=== PATIENT | male | born 1940 | race Caucasian/White ===

== ENCOUNTER 2023-04-03 13:49 | Outpatient (AMB) | payer OTHER, SELFPAY ==
--- NOTE | 2023-04-03 13:55 | HO.NEPHOV_ITS ---
HPI HPI Comments History of Present Illness Details I had the privilege of seeing Remi in consultation for hyponatremia. He has history of atrial fibrillation but no history of heart failure. He has no history of liver failure or renal failure. He has no history of depression and is not on any antidepressant medications. He has no nausea, vomiting or diarrhea. He has no pedal edema. He has no history of hyperkalemia or hypotension. He denies compulsive water drinking. He has no history of seizures but had CVA. He has not on any diuretics. He tries to be good with fluid restriction. He drinks 2 beers a day. He has no weakness or mental status changes. His last serum sodium was 129. 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 A-fib Surgical History H/O colonoscopy Social History (Updated 04/03/23 @ 13:59 by Isidra Churchill MA) Alcohol intake: current Patient Tobacco Use Status: Former Tobacco user Vital Signs 04/03/23 13:56 Height 5 ft 9 in Weight 177 lb BMI 26.1 BP 110/70 Blood Pressure Location Lt brachial Position Sitting Pulse 93 Pulse Source Pulse Oximeter Pulse Oximetry (%) 99 Oxygen Delivery Method Room Air Physical Exam Vital Signs: Last Vital Signs Pulse 93 04/03/23 13:56 BP 110/70 04/03/23 13:56 Pulse Ox 99 04/03/23 13:56 Oxygen Delivery Method Room Air 04/03/23 13:56 BMI result Body Mass Index 26.1 Const General: comfortable and no acute distress Orientation/consciousness: patient oriented x3 HEENT Head: Yes normocephalic Mouth: Normal oral and palatal mucosa present Eyes EOM: EOMs intact bilaterally Neck Neck: Yes supple Resp Auscultation: clear to auscultation bilaterally Cardio Jugular venous distension: no JVD GI Palpation (GI): Soft to palpation Auscultation: normal bowel sounds General: Yes no CVA tenderness Back/Spine/Pelvis Back: no CVA tenderness Skin General skin exam: no rashes or lesions noted Neuro General: patient oriented x3 Extrem General: Yes no pedal edema Assessment & Plan Assessment & Plan (1) Essential (primary) hypertension: Code(s): I10 - Essential (primary) hypertension (2) Hyponatremia: Code(s): E87.1 - Hypo-osmolality and hyponatremia Plan Remi has hyponatremia for some time. His serum sodium has been fluctuant. He is hypertensive but not on any diuretics. He has no history of heart failure, liver failure or renal failure. He has no edema. He has no history of hyperkalemia or hypotension. He has no nausea, vomiting or diarrhea. He denies compulsive free water drinking but has 2 beers every day. He has history of CVA. 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 He has no weakness or mental status changes. I will be very reluctant to initiate him on oral urea or demeclocycline. I discussed with him the etiologies of low-sodium, investigations and management. We agreed on monitoring the blood work closely and initiating on medications when it is absolutely necessary. His blood pressure is at goal on current medication regimen and I have not made any changes. I ordered workup for his hyponatremia and has given a follow-up. All his questions were answered. Orders: Orders Uric Acid Today E87.1 - Hypo-osmolality and hyponatremia, I10 - Essential (primary) hypertension Cortisol Random Today E87.1 - Hypo-osmolality and hyponatremia, I10 - Essential (primary) hypertension Protein Electrophoresis, Serum Today E87.1 - Hypo-osmolality and hyponatremia, I10 - Essential (primary) hypertension Osmolality Urine Today E87.1 - Hypo-osmolality and hyponatremia, I10 - Essential (primary) hypertension Osmolality, Serum Today E87.1 - Hypo-osmolality and hyponatremia, I10 - Essential (primary) hypertension Thyroid Stimulating Hormone Today E87.1 - Hypo-osmolality and hyponatremia, I10 - Essential (primary) hypertension Sodium Urine Random Today E87.1 - Hypo-osmolality and hyponatremia, I10 - Essential (primary) hypertension Blood Urea Nitrogen Today E87.1 - Hypo-osmolality and hyponatremia, I10 - Essential (primary) hypertension Electrolytes Today E87.1 - Hypo-osmolality and hyponatremia, I10 - Essential (primary) hypertension Calcium Today E87.1 - Hypo-osmolality and hyponatremia, I10 - Essential (primary) hypertension Creatinine Today E87.1 - Hypo-osmolality and hyponatremia, I10 - Essential (primary) hypertension Coding Level of Care Code New Pt Level 4 (49310) Diagnoses Essential (primary) hypertension I10 Hyponatremia E87.1 Results Reviewed Nephrology Results: No Data to Display
[2023-04-03 13:56] VITALS: BP 110/70; PULSE 93; O2SAT 99; BMI 26.1
== END 2023-04-03 14:41 | disposition home or self-care (01) ==
PROVIDERS: PCP Family Medicine; Referring Provider Family Medicine; Visit Provider Internal Medicine Nephrology
DX: I10 Essential (primary) hypertension (principal); E87.1 Hypo-osmolality and hyponatremia
CPT/HCPCS: 99204

== ENCOUNTER → 2023-04-03 13:49 | Outpatient (BNVA) | payer OTHER, SELFPAY | PROVIDERS: PCP Family Medicine; Visit Provider Internal Medicine Nephrology ==

== ENCOUNTER 2023-07-17 09:27 | Outpatient (REF) | payer OTHER, SELFPAY ==
[2023-07-17 11:44] LABS: Osmolality, Serum 277 mosm/kg (281-305)
[2023-07-17 11:50] LABS: Anion Gap 9 (12-20); Blood Urea Nitrogen 16 mg/dL (9-16); Calcium 9.9 mg/dL (8.4-10.2); Carbon Dioxide 27 mmol/L (22-29); Chloride 103 mmol/L (96-108); Estimated Glomerular Filt Rate > 60; Potassium 4.3 mmol/L (3.3-5.1); Sodium 135 mmol/L (135-145); Uric Acid 6.1 mg/dL (3.4-7.0)
[2023-07-17 12:06] LABS: Thyroid Stimulating Hormone 0.77 uIU/mL (0.32-4.0)
[2023-07-17 12:07] LABS: Cortisol Random 15.7 ug/dL
[2023-07-17 12:13] LABS: Osmolality Urine 685 mosm/kg (373-1093)
[2023-07-21 22:54] LABS: Prot Elec - Alpha1 0.3 g/dL (0.2-0.3); Prot Elec - Alpha2 0.7 g/dL (0.5-0.9); Prot Elec - Beta 1 0.4 g/dL (0.4-0.6); Prot Elec - Beta 2 0.4 g/dL (0.2-0.5); Prot Elec - Gamma 0.9 g/dL (0.8-1.7); Prot Elec - Total Protein 6.7 g/dL (6.1-8.1)
== END 2023-07-17 09:28 | disposition home or self-care (01) ==
LOC: HO.WFDLDS 09:27
PROVIDERS: Visit Provider Internal Medicine Nephrology
DX: I10 Essential (primary) hypertension (principal); E87.1 Hypo-osmolality and hyponatremia
CPT/HCPCS: 36415; 80051; 82310; 82533; 82565; 83930; 83935; 84165; 84300; 84443; 84520; 84550

== ENCOUNTER 2023-07-30 11:20 | Outpatient (AMB) | payer OTHER, SELFPAY ==
[2023-07-30 11:24] VITALS: BP 122/68; BMI 24.7
--- NOTE | 2023-07-30 11:24 | HO.NEPHOV_ITS ---
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 He has history of atrial fibrillation but no history of heart failure. He has no history of liver failure or renal failure. He has no history of depression and is not on any antidepressant medications. He has no nausea, vomiting or diarrhea. He has no pedal edema. He has no history of hyperkalemia or hypotension. He denies compulsive water drinking. He has no history of s eizures but had CVA. He has not on any diuretics. He tries to be good with fluid restriction. He drinks 2 beers a day. He has no weakness or mental status changes. His last serum sodium was 135. 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 A-fib Surgical History H/O colonoscopy Social History Alcohol intake: current Patient Tobacco Use Status: Former Tobacco user Review of Systems Const All systems reviewed & are unremarkable except as noted in HPI and below Physical Exam Vital Signs: Last Vital Signs BP 122/68 07/30/23 11:24 BMI result Body Mass Index 24.7 Const General: comfortable and no acute distress Orientation/consciousness: patient oriented x3 HEENT Head: Yes normocephalic Mouth: Normal oral and palatal mucosa present Eyes EOM: EOMs intact bilaterally Neck Neck: Yes supple Resp Auscultation: clear to auscultation bilaterally Cardio Jugular venous distension: no JVD Rate: regular rate GI Palpation (GI): Soft to palpation Auscultation: normal bowel sounds General: Yes no CVA tenderness Back/Spine/Pelvis Back: no CVA tenderness Skin General skin exam: no rashes or lesions noted Neuro General: patient oriented x3 and moves all extremities Extrem General: Yes no pedal edema Results Reviewed Nephrology Results: Sodium 135 mmol/L (135-145) 07/17/23 Potassium 4.3 mmol/L (3.3-5.1) 07/17/23 Chloride 103 mmol/L (96-108) 07/17/23 Carbon Dioxide 27 mmol/L (22-29) 07/17/23 BUN 16 mg/dL (9-16) 07/17/23 Creatinine 0.72 mg/dL (0.5-1.4) 07/17/23 Calcium 9.9 mg/dL (8.4-10.2) 07/17/23 Assessment & Plan Assessment & Plan (1) Hyponatremia: Code(s): E87.1 - Hypo-osmolality and hyponatremia Category: Medical (2) Essential (primary) hypertension: Code(s): I10 - Essential (primary) hypertension Category: Medical Plan Remi has hyponatremia for some time. His serum sodium had been fluctuant. He is hypertensive but not on any diuretics. He has no history of heart failure, liver failure or renal failure. He has no edema. He has no history of hyperkalemia or hypotension. He has no nausea, vomiting or diarrhea. He denies compulsive free water drinking but has 2 beers every day. He has history of CVA. 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 He has no weakness or mental status changes. I discussed with him the etiologies of low-sodium, investigations and management. We agreed on monitoring the blood work closely and initiating on medications when it is absolutely necessary. His blood pressure is at goal on current medication regimen and I have not made any changes. All his questions were answered. Orders: Orders Creatinine Today E87.1 - Hypo-osmolality and hyponatremia, I10 - Essential (primary) hypertension Blood Urea Nitrogen Today E87.1 - Hypo-osmolality and hyponatremia, I10 - Essential (primary) hypertension Electrolytes Today E87.1 - Hypo-osmolality and hyponatremia, I10 - Essential (primary) hypertension Coding Level of Care Code Est Pt Level 4 (82656) Diagnoses Hyponatremia E87.1 Essential (primary) hypertension I10
== END 2023-07-30 11:50 | disposition home or self-care (01) ==
PROVIDERS: PCP Family Medicine; Visit Provider Internal Medicine Nephrology
DX: E87.1 Hypo-osmolality and hyponatremia (principal); I10 Essential (primary) hypertension
CPT/HCPCS: 99214

== ENCOUNTER → 2023-07-30 11:20 | Outpatient (BNVA) | payer OTHER, SELFPAY | PROVIDERS: PCP Family Medicine; Visit Provider Internal Medicine Nephrology ==

== ENCOUNTER 2024-01-22 08:52 | Outpatient (REF) | payer OTHER, SELFPAY ==
--- OUTSIDE RECORDS SUMMARY | 2024-01-22 09:06 | XMS_ITS | Data Portability ---
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 Montiel. His symptoms are about the same. Pain. Pain with motion. He reports increased weakness in the left leg. He is still ambulating. Physical Exam: Patient is well nourished, well-developed, in no acute distress, with appropriate mood and affect. The patient is oriented to time, place, and person. Respirations are even and unlabored. There is no inguinal adenopathy. Examination of the contralateral hip shows normal range of motion, strength, no tenderness, and intact skin. The affected limb is well-perfused, shows a grossly normal motor and sensory examination. Examination of the left hip shows well-healed lateral skin incision. hip motion is reduced. FADIR is positive and MARCELLO is positive. Stinchfield test is positive. Leg lengths are approximately left leg less than right by 2 cm. Both hips are stable and muscle strength is normal. Pedal pulses are palpable. Radiographs of the left hip from July 2022 demonstrate a left hip hemiarthroplasty. There is significant acetabular wear and surrounding bone loss. No signs of left femoral prosthesis related hardware complications. 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 Montiel in 2016. I recommend surgery for him. This would be conversion to total hip replacement. Obviously surgery comes with risk, but I feel that this will only worsen and he may be unable to ambulate in the future and surgical intervention will become much more complex. Patient Refuses surgery at this time. That is his decision, which obviously we will respect. he under stands the significant risks of delaying surgery. He will return for follow-up in 1 year unless he changes his mind about surgery before then. Not available 04/18/2023 11:03:52 08/08/2023 08/08/2023 HPI : ? Patient Is coming in for follow-up for his severe left acetabular wear following hemiarthro[place] [address] Montiel. His symptoms have severely worsened since I last saw him in April. He has difficulty ambulating. He has severe pain. This is affecting his quality of life. There are some days where he is unable to walk. Physical Exam : Patient is well nourished, well-developed, in no acute distress, with appropriate mood and affect. The patient is oriented to time, place, and person. Respirations are even and unlabored. There is no inguinal adenopathy. Examination of the contralateral hip shows normal range of motion, strength, no tenderness, and intact skin. The affected limb is well-perfused, shows a grossly normal motor and sensory examination. Examination of the left hip shows well-healed lateral skin incision. hip motion is reduced. FADIR is positive and MARCELLO is positive. Stinchfield test is positive. Leg lengths are approximately left leg less than right by 2 cm. Both hips are stable and muscle strength is normal. Pedal pulses are palpable. Assessment/Plan : Patient has severe acetabular wear following left hip hemiarthroplasty which also at that time had reaming of his acetabulum. Surgery would be left revision total hip replacement,, conversion hemiarthroplasty to total hip arthroplasty. He would like to move forward with surgical intervention. An extensive discussion was conducted of the natural history of the disease and the variety of surgical and non-surgical treatment options available to the patient. A risk/benefit analysis was discussed with the patient reviewing the advantages and disadvantages of surgical intervention at this time. A full explanation was given of the nature and the purpose of the procedure and anesthesia, its benefits, possible alternative methods of diagnosis or treatment, the risks involved, the possibility of complications, the foreseeable consequences of the procedure and the possible results of the non-treatment. No guarantee or assurance was made as to the results that may be obtained. Specifically, the risks were identified to include, but are not limited to the following: Infection, phlebitis, pulmonary embolism, , paralysis, dislocation, pain, stiffness, instability, limp, weakness, breakage, leg-length inequality, uncontrolled bleeding, nerve injury, blood vessel injury, pressure sores, anesthetic risks, delayed healing of wound and bone, and wear and loosening. Additional risks of robotic hip replacement were discussed (if used) including but not limited to pin site infection, draining, longer incision, longer OR time, and fracture near the pin sites. Further discussion was undertaken with the patient about the details of surgical preparation, treatment, and postoperative rehabilitation including medical clearance, autotransfusion, the hospital course, and the postoperative rehabilitation involved. As a part of routine preoperative counseling, if the patient is a smoker, the patient recognizes the increased risk of complications in patients who utilize tobacco products. The patient has also been counseled regarding the elevated risk of surgical complications in patients with an elevated BMI. The patient demonstrates understanding of the increased risk in such patients. The patient was encouraged to participate in physical activity and diet modification under the direction of their primary care physician. We will plan on proceeding with left revision total hip arthroplasty using the [place] hip replacement system. However, it is possible during the preoperative planning process or due to intraoperative findings that a different implant system may be utilized in order to optimize the patient's outcome. We had a discussion regarding implant and bearing options. We had a detailed discussion of the advantages and limitations of the specific implant designs, materials and bearing surfaces. All questions were answered to the patient's satisfaction, and the patient was asked to call the office with any further concerns. All in all, I feel that this patient is a good candidate for surgical reconstruction. We discussed the increased risks regarding revision total hip replacement,, conversion hemiarthroplasty to total hip arthroplasty. We discussed the increased concerns given his severe acetabular wear given his prior surgery. An in-depth discussion of the risks and benefits of surgery as noted above were had with patient, including any reasonable alternatives and the risks and benefits of the alternatives. The patient was given time to understand and ask questions, and the surgical consent was signed and dated today. If surgery is >1 month from today, this discussion will be repeated on the day of surgery, prior to anesthesia administration. The patient is also aware that questions can be asked at any time before the surgical date to me or my team. Plan for left revision total hip replacement at [facility]. Not available 08/08/2023 14:24:12 09/18/2023 09/18/2023 HPI : Patient is here for a 2 week follow-up from a left revision JOSE. Patient denies fevers, chest pain and shortness of breath. Patient has been compliant with anticoagulant protocol. He used pain pills for the first 2 days but has since switched over to just Tylenol and gets adequate relief of pain. He is compliant with Eliquis for DVT prophylaxis. He does have plans to get started on physical therapy soon. Already, he is pleased with the results of his hip arthroplasty. He states that it is already moving much better than it did before surgery. Physical Exam : Patient is well nourished, well- developed, in no acute distress, with appropriate mood and affect. The patient demonstrates good hip motion and strength. The incision is clean and dry with no signs of infection. Negative calf tenderness, negative Arcelia's sign. Assessment/Plan : The patient is doing well status post total hip arthroplasty. Patient will continue and complete 28 day anticoagulation therapy and continue physical therapy. Return for follow-up in 1 month; sooner with any problems. This patient was seen and evaluated by Kristine Sheridan MS, PA-C in indirect conjunction with documenting/[facility] provider Juan Carlos Beltran MD. He agrees with history, physical examination, tests/diagnostic imaging, and treatment plan. [email or web address] Not available 09/18/2023 14:50:09 10/17/2023 10/17/2023 HPI : Patient is here for a 6 week follow-up from a left revision total hip replacement. Overall he states he is recovering well. He is better than he was before surgery. The thigh has some tenderness and swelling. He has not done physical therapy yet, but he is getting get started next week. He is walking with a cane. He states that his back feels much better than before surgery. Physical Exam : Patient is well nourished, well- developed, in no acute distress, with appropriate mood and affect. The patient is AAOx3. The patient demonstrates good hip motion and strength. The incision is well healing. Assessment/Plan : The patient is functioning well 6 weeks from left revision total hip replacement. We discussed that he should not do high impact activities given the revision surgery components. Continue physical therapy as needed. Return for follow-up in 2 months with x-rays at that time. Not available 10/17/2023 11:23:32 12/16/2023 12/16/2023 HPI : ? Patient is here for 4-month follow-up from left revision hemiarthroplasty to total hip arthroplasty. He is recovering well. Reports really minimal to no pain. He reports good function. His main complaint is some stiffness that is slowly improving. He is transition to exercises on his own. He is walking with a cane. Overall,??patient reports good pain relief in the hip and satisfactory yazidi of function in terms of activities of daily living. Physical Exam : Patient is well nourished, well-developed, in no acute distress, with appropriate mood and affect. The patient is oriented to time, place, and person. Respirations are even and unlabored. There is no inguinal adenopathy. Examination of the contralateral hip shows normal range of motion, strength, no tenderness, and intact skin. The operative limb is well-perfused, with well healed skin incision. The patient demonstrates good hip motion, stability, and strength. There is no pain with ROM Muscle strength is normal. Pedal pulses are palpable. Assessment/Plan : This patient is functioning well after LEFT revision total hip arthroplasty. Continue to work on hip conditioning exercises. [id number] medications as needed. Ultimate failure may occur due to mechanical wear, loosening or breakage. Follow-up is recommended to assess for the possibility of failure. He will follow-up with me in 6 months from now with repeat x-rays of the left hip at that time. Not available 12/16/2023 13:43:26 Plan of Treatment Reminders Order Date Submit Date Provider Last Modified By Organization Details Last Modified Time Details Appointments FOLLOW UP 2024 11:30A Anna Beltran MD Not available Not available Not available FOLLOW UP 2024 01:15P Anna Beltran MD Not available Not available Not available Lab None recorded. Referral None recorded. Procedures None recorded. Surgeries total hip arthropla sty (SURG) 2023 024 [facility] [place], [address], [place], [address], 09/05/2023 10:13:54 Imaging XR, hip, unilatera l, 2 or 3 view 2023 024 [facility], [address], [address], [place], [address], 04/18/2023 12:01:42 XR, hip, unilatera l, 2 or 3 view 2023 024 [email or web address] [facility], [address], [address], [place], [address], 08/08/2023 13:49:10 XR, hip, unilatera l, 2 or 3 view 2023 024 [facility], [address], [place], [address], 10/17/2023 11:49:07 XR, hip, unilatera l, 2 or 3 view 2023 024 [facility], [address], [place], [address], 12/16/2023 16:06:19 Medication Orders None recorded. Patient TargetsNo targets recorded. Patient Instructions Encounter Date Encounter Id Patient Instructions Last Modified By Organization Details Last Modified Time 04/18/2023 [id number] AP pelvis, AP an d lateral of the left hip demonstrates a left hip hemiarthroplasty. There is significant acetabular wear and cyst formation. I do not see significant progression compared to x-rays from 6 months ago. Not available 04/18/2023 11:01:41 08/08/2023 [id number] AP pelvis, AP an d lateral of the left hip demonstrates a left hip hemiarthroplasty. There is significant acetabular wear and cyst formation. I do not see significant progression compared to x-rays from 3 months. Not available 08/08/2023 13:47:12 09/18/2023 [id number] physical therapy * - Diagnosis: Status post revision left sided total hip arthroplasty Evaluate and treat as indicated to reduce pain and to improve strength, mobility, stability, range of motion, and function. Please teach a home exercise plan and incorporate PT into patient's exercise routine. 2-3 sessions weekly for 6-8 weeks. [email or web address] Not available 09/25/2023 09:39:28 10/17/2023 [id number] AP pelvis, AP an d lateral of the left hip demonstrate a left revision total hip replacement. Multihole acetabular component appears in appropriate position without signs of migration. Cemented [place] femoral component with evidence of cement and cement technique. No signs of migration or change in component position or other hardware related complication. Not available 10/17/2023 11:24:19 12/16/2023 [id number] AP pelvis, AP an d lateral of the left hip demonstrates a left revision total hip replacement with multihole acetabular component which appears well-fixed. There is a cemented femoral component. There is no change in lucent lines or position of component compared to prior x-rays from October. Not available 12/16/2023 13:43:50 Reason for Referral None Reported. Results Created Date Observation Date Name Description Value Unit Range Abnormal Flag Note LastModifiedBy Organization Detail LastModifiedTime 09/06/19 24 08/29/2023 CT, hip + pelvi s, w/o contr ast EXAMIN ATION: CT OF THE LEFT HIP WITHOU T CONTRA ST, [facility] AL INFORM ATION: Pre-op erativ e planni ng for hip MAKOpl asty. Arthri tis of the left hip. Revisi on total hip arthro plasty 2023. COMPAR JANE: Radiog raphs from the same date. TECHNI QUE: Multid etecto r volume tric imagin g was obtain ed throug h the hips and knees (biase d toward the left) withou t contra st accord ing to the [facility]. Multip lanar reform atted images were submit [email or web address]. This CT examin ation was perfor med using dose optimi zation techni ques as approp riate, variou sly includ ing the follow ing: *Autom ated exposu re contro l *Adjus tment of mA and/or kV accord ing to patien t size (this includ es techni ques or standa rdized protoc ols for target ed exams where dose is matche d to indica tion/r cheryle for exam; i.e. extrem ities or head) *Use of iterat pradeep recons tructi on techni que DLP: 807 mGy-cm FINDIN GS: Hip: The left total hip prosth esis appear s approp riatel y positi oned with concen tric positi oning of the femora l head compon ent within the acetab ular cup. There is extens pradeep peripr osthet ic osteol ysis surrou nding the femora l compon ent diffus sage at the bone cement interf sapna as well as at the acetab ular cup diffus sage. This could be due to partic le diseas e, though infect ion and asepti c loosen ing are also possib le. No peripr osthet ic fractu res are identi fied. Foci of hetero topic bone are presen t at the infero medial aspect of the joint, potent ially corredarshan salguero g to loose bodies within an excres cence recess from the joint or within the adjace nt soft tissue s. No large surrou nding fluid collec tions or pseudo tumors are identi fied. There is severe fatty atroph y of the gluteu s minimu s and more modera te-to- severe atroph y of the gluteu s medius muscle . Small focus of fatty atroph y is noted in the left rectus femori s muscle . Bladde r wall thicke suzanne is noted. No acute intrap elvic findin gs. No adenop athy. Athero sclero tic calcif icatio ns are noted. Osseou s fusion is presen t at the lower thorac ic spine and thorac olumba r juncti on. Modera te-to- severe osteoa rthrit is in the right hip. Knee: Bones are osteop enic. Chondr ocalci nosis. Mild tricom partme ntal osteoa rthrit is at the knee. No joint effusi on. Fatty atroph y is noted within the semime mbrano lorna muscle . IMPRES PHOEBE: 1. Extens pradeep peripr osthet ic osteol ysis surrou nding the femora l and acetab ular compon ents of the left total hip prosth esis. This could be due to partic le diseas e or asepti c loosen ing, though infect ion is also on the differ ential . 2. Modera te-to- severe osteoa rthrit is in the right hip. Thank you for referr ing your patien t to us, Ervin lozano MD [phone] (Elect nery miranda Signed - 2023 09:14) Copy: [facility] T , [email or web address] [address] [facility] [address], [place], [address], 09/08/2023 06:28:14 09/10/1908/29/2023 XR, pelvi s, 1 or 2 view EXAMIN ATION: XR PELVIS CLINIC AL INFORM ATION: Hip arthri tis COMPAR JANE: None availa ble. TECHNI QUE: Uprigh t and seated latera l views of the sacrum and coccyx FINDIN GS: No obviou s fractu re. Normal alignm ent of the sacrum and coccyx , stable appear ance betwee n the 2 positi ons. IMPRES PHOEBE: No obviou s fractu re. Normal alignm ent of the sacrum and coccyx . Thank you for referr ing your patien t to us, Louise taylor MD [phone] (Roberto miranda Signed - 2023 08:52) [email or web address] [address] [place] [address], [place], [address], 09/10/2023 10:29:47 Result Notes None recorded. Problems Name Problem SNOMED Code Status Onset Date Resolution Date Notes Provider Name and Address Organization Details Recorded Time Mechanical complication of internal joint prosthesis 812327375 Active 2022 Juan Carlos Beltran MD [address], [facility] [place], [address], [place] [facility], P 3 11:50:26 History of repair of hip joint 867241105 Active 2023 KRISTINE SHERIDAN PA-C [address] [facility],[address], [place], [address] , [place] [facility], P 14:50:17 Problem Notes None recorded. Procedures Surgical History Date Name Laterality Status Provider Name and Address Organization Details Recorded Time 09/04/19 24 TOTAL HIP ARTHROPLASTY (SURG) completed Heydi Bass [place] - [facility], [facility] 09/05/2023 10:14:10 01/21/20 17 Hip Surgery completed Yessenia Fraga [facility] - [facility] 10/04/2022 11:01:48 Imaging Results Imaging Date Name Status LastModified by Organiz ation Details LastModified Time 08/29/2023 CT, hip + pelvis, w/o contrast completed [facility] [address] [facility] [address], [place], [address], 09/08/2023 06:28:14 08/29/2023 XR, pelvis, 1 or 2 view completed [facility] [address] [facility] [address], [place], [address], 09/10/2023 10:29:47 Procedure Notes None recorded. Medical Equipment None Reported. Allergies No known drug allergies Medications Name Sig Start Date Stop Date Status Note LastModified by Organization Details LastModified Time atorvastati n 40 mg tablet TAKE 1 TABLET BY MOUTH DAILY active Not Available Not Available No t Available metoprolol succinate ER 50 mg tablet,exte nded release 24 hr TAKE 1 TABLET BY MOUTH DAILY active Not Available Not Available No t Available lisinopril 20 mg tablet TAKE 1 TABLET BY MOUTH DAILY. LISINOPRI L 5 MG BY MOUTH ADDED TO 20 MG DAILY. active Not Available Not Available No t Available nitroglycer in 0.4 mg sublingual tablet 12/15 completed Not Available Not Available Not Available pravastatin 20 mg tablet TAKE 1 TABLET BY MOUTH DAILY 12/15 completed Not Available Not Available Not Available lisinopril 5 mg tablet TAKE 1 TABLET BY MOUTH DAILY active Not Available Not Available No t Available Eliquis 5 mg tablet TAKE 1 TABLET BY MOUTH TWICE DAILY active Not Available Not Available No t Available Vitals Date Recorded Body height Body mass index (BMI) Body weight Provider Name and Address Organization Details Last Updated DateTime 04/18/2023 175.26 cm 26 kg/m2 82165.26 g Ciara Reinoso [facility] 04/18/2023 10:51:40 Date Recorded Body height Body mass index (BMI) Body weight Provider Name and Address Organization Details Last Updated DateTime 08/08/2023 175.26 cm 26 kg/m2 02443.26 brian Madden [facility] 08/08/2023 13:04:46 Date Recorded Body height Body mass index (BMI) Body weight Provider Name and Address Organization Details Last Updated DateTime 09/18/2023 175.26 cm 26 kg/m2 67501.26 g Felipa Cowan [facility] 09/18/2023 14:30:37 Date Recorded Body height Body mass index (BMI) Body weight Provider Name and Address Organization Details Last Updated DateTime 10/17/2023 175.26 cm 26 kg/m2 00473.26 g Ciara Reinoso [facility], [facility] 10/17/2023 10:45:45 Date Recorded Body height Body mass index (BMI) Body weight Provider Name and Address Organization Details Last Updated DateTime 12/16/2023 175.26 cm 26 kg/m2 37231.26 g Ciara Reinoso [facility], [facility] 12/16/2023 13:18:59 Social History Question Answer Notes LastModified by Organizat ion Details LastModified Time Tobacco Smoking Status Former Smoker Yessenia huerta, [place] - [facility] 08/05/2022 11:35:20 When Did You Quit Smoking? 17+yearssinc elastcigaret te Information not available 08/05/2022 Sex: Unknown Functional Status None recorded. Mental Status None recorded. Family History Relationship Description Onset Age of this Age Resolved Age Notes LastModified by Organization Details LastModified Time Father Arthritis Not available 08/05/2022 11:35:39 Mother Arthritis Not available 08/05/2022 11:35:39 Mother Hypertensive disorder Not available 2022 11:36:06 Sister Family history of malignant neoplasm Not available 2022 11:35:49 Brother Hypertensive disorder Not available 2022 11:36:06 Notes:rheumatologic disease- mother Medical History Condition Response Hypertension Y Past Encounters Encounter ID Performer Location Encounter Start Date Encounter Closed Date Diagnosis/Indication Diagnosis SNOMED-CT Code Diagnosis ICD10 Code [id number] [facility] [address] [place] [address] 08/05/2022 11:11:05 08/05/2022 11:41:55 History of total replacement of left hip joint 5193170222 505781 Z96.642 [id number] MD RAFIA Card[place] [address] [address] 10/04/2022 10:40:59 10/04/2022 11:15:29 History of left hip replacement 6026947981 987074 Z96.642 Mechanical complication of internal joint prosthesis 607035038 T84.091A [id number] [facility] [address] [address] 04/18/2023 10:16:02 04/18/2023 11:07:34 History of total replacement of left hip joint 8028733803 846751 Z96.642 Mechanical complication of internal joint prosthesis 516535029 T84.091A [id number] MD RAFIA Card[place] [address] [address] 08/08/2023 12:55:25 08/08/2023 13:49:10 History of repair of hip joint 785458962 Z96.642 Mechanical complication of internal joint prosthesis 619945252 T84.091A History of total hip arthroplasty [id number] 06 Z96.649 [id number] MD RAFIA Cardozolatonya [address] [address] 09/18/2023 14:25:01 09/18/2023 14:50:37 History of repair of hip joint [id number] Z96.642 [id number] [facility] [address] [place] [address] 10/17/2023 10:41:41 10/17/2023 11:28:57 History of total replacement of left hip joint [id number] 535297 Z96.642 Surgical follow-up 82512 4000 Z47.1 Z96.642 [id number] MD RAFIA Cardozo [place] [facility] [address] [place] [address] 12/16/2023 13:10:09 12/16/2023 13:42:28 History of repair of hip joint [id number] Z96.642 Health Concerns Section Related Observation LastModified by Organization Detai ls LastModified Time None Recorded Concern Status LastModified by Organization Details LastModified Time None Recorded Advance Directives Directive None Recorded Payers Encounter Date Sequence Insurance Name Policy Number Policy Anderson Covered Member ID Anderson Member ID Guarantor Name 08/08/2023 1 [facility] - MEDICARE PREFERRED (MEDICARE REPLACEMENT HMO) [facility] Addi Ordonez [id number] 1 Addi Mery 09/18/2023 1 [facility] - MEDICARE PREFERRED (MEDICARE REPLACEMENT HMO) [facility] Addi Ordonez [id number] 1 Addi Ordonez 10/17/2023 1 [facility] - MEDICARE PREFERRED (MEDICARE REPLACEMENT HMO) [facility] Addi Ordonez [id number] 1 Addi Ordonez 12/16/2023 1 [facility] - MEDICARE PREFERRED (MEDICARE REPLACEMENT HMO) [facility] Addi Ordonez [id number] 1 Addi Mery
[2024-01-22 11:46] LABS: Anion Gap 14 (12-20); Blood Urea Nitrogen 12 mg/dL (9-16); Carbon Dioxide 24 mmol/L (22-29); Chloride 101 mmol/L (96-108); Estimated Glomerular Filt Rate > 60; Potassium 4.4 mmol/L (3.3-5.1); Sodium 135 mmol/L (135-145)
== END 2024-01-22 08:53 | disposition home or self-care (01) ==
LOC: HO.WFDLDS 08:52
PROVIDERS: Visit Provider Internal Medicine Nephrology
DX: E87.1 Hypo-osmolality and hyponatremia (principal); I10 Essential (primary) hypertension
CPT/HCPCS: 36415; 80051; 82565; 84520

== ENCOUNTER 2024-01-28 11:16 | Outpatient (AMB) | payer OTHER, SELFPAY ==
--- OUTSIDE RECORDS SUMMARY | 2024-01-28 11:18 | XMS_ITS ---
Author Name CRISP Organization Unknown Results Test Name/Text Value Interpretation Date Range Source BLOOD BANK CMNT PATIENT-IMP Normal CTTHSFRAN ABO+RH GP BLD Normal CTT HSFRAN BLD GP AB SCN SERPL QL Normal CTTHSFRAN BLOOD BANK CMNT PATIENT-IMP Normal CTTHSFRAN ABO+RH GP BLD Normal CTT HSFRAN History of Medication Use Medication Directions Dispensed Refills Start Date End Date [facility] calcium carbonate (TUMS) chewable tablet 500 mg 500 mg, Chew, Every 4 hours PRN, indigestion, heartburn, Starting on Maribel 09/04/23 at 1726 09/07/2023 active bisacodyl (DULCOLAX) suppository 10 mg 10 mg, Rectal, Daily as needed, constipation, Starting on Maribel 09/04/23 at 1726Hold for patients with history of IBS, IBO, Ileostomy. 09/07/2023 active metoclopramide (REGLAN) injection 10 mg 10 mg, Intravenous, Every 6 hours PRN, nausea, vomiting, Starting on Maribel 09/04/23 at 1528, PACU/FloorTo be given if zofran is ineffective. 09/07/2023 active tranexamic acid (LYSTEDA) 650 MG tablet Take 3 tablets (1,950 mg total) by mouth daily for 2 days. Tranexamic Acid (TXA): continue oral TXA on post-operative days #1, 2, 3. You received your first dose in the hospital. Continue remaining doses as prescribed. Each dose is 1950mg (3 pills). Swallow one pill at a time with water. 09/07/2023 active HYDROmorphone (DILAUDID) injection 0.5 mg 0.5 mg, Intravenous, Every 4 hours PRN, severe pain (7-10), Starting on Maribel 09/04/23 at 1528, PACU/FloorAdminister IV push over 2-3 minutes. 09/07/2023 active ondansetron (ZOFRAN-ODT) 8 MG disintegrating tablet Take 1 tablet (8 mg total) by mouth every 8 (eight) hours as needed for nausea for up to 7 days. 09/07/2023 active apixaban (ELIQUIS) tablet 2.5 mg 2.5 mg, Oral, 2 times daily, First dose on Maribel 09/04/23 at 1800, For 14 dosesEliquis 2.5mg by mouth twice daily for 2 weeks, THEN resume home dose eliquis 5mg bid on 09/18/23 09/07/2023 active sulfamethoxazole-tr imethoprim (BACTRIM DS) 800-160 MG per tablet Take 1 tablet (160 mg of trimethoprim total) by mouth every 12 (twelve) hours for 7 days. 09/07/2023 active methocarbamol (ROBAXIN) 750 MG tablet Take 1 tablet (750 mg total) by mouth every 6 (six) hours as needed. 09/07/2023 active oxyCODONE (ROXICODONE) 5 MG immediate release tablet Take 1 tablet (5 mg total) by mouth every 4 (four) hours as needed for pain. 09/07/2023 active oxyCODONE (ROXICODONE) 5 MG immediate release tablet 10 mg 10 mg, Oral, Every 4 hours PRN, moderate pain (4-6), Starting on Maribel 09/04/23 at 1528, PACU/Floor 09/07/2023 active sulfamethoxazole-tr imethoprim (BACTRIM DS) 800-160 MG per tablet 160 mg of trimethoprim 160 mg of trimethoprim (1 tablet), Oral, Every 12 hours scheduled (2 times per day), First dose on Maribel 09/04/23 at 2100, For 7 days 09/07/2023 active orphenadrine (NORFLEX) injection 30 mg 30 mg, Intravenous, Once as needed, muscle spasms, for musculoskeletal pain, to achieve pain scale less than or equal to 4, Starting on Maribel 09/04/23 at 1527, For 1 dose, PACU/Phase 1 09/07/2023 complet ed tranexamic Acid 1,000 mg in sodium chloride 0.9% (NS) 100 mL IVPB-MBP 1,000 mg, Intravenous, Administer over 20 Minutes, Once, On Maribel 09/04/23 at 1530, For 1 dose, PACU/Phase 1Administer within 30 minutes arrival to PACU??for OR 09/07/2023 complete d magnesium hydroxide (MILK OF MAGNESIA) 400 MG/5ML suspension 30 mL 30 mL, Oral, Daily as needed, constipation, Starting on Maribel 09/04/23 at 1726Hold for patients with history of IBS, IBO, Ileostomy. 09/07/2023 active dexamethasone (DECADRON) tablet 8 mg 8 mg, Oral, Once, On Fri09/05/23 at 0800, For 1 dosePOD #1 in the morning.??Hold for patients with the following procedures: I&D w/ or w/o poly exchange, resection arthroplasty, removal of prosthesis 09/07/2023 completed alum & mag hydroxide-simethico ne suspension 30 mL 30 mL, Oral, Every 6 hours PRN, indigestion, Starting on Maribel 09/04/23 at 1726 09/07/2023 active benzocaine-menthol (CEPACOL) lozenge 1 lozenge 1 lozenge, Oral, Every 2 hours PRN, sore throat, Starting on Maribel 09/04/23 at 1726 09/07/2023 active ceFAZolin (ANCEF) injection 2 g 2 g, Intravenous, Every 8 hours, First dose on Maribel 09/04/23 at 2000, For 1 dose, PACU/FloorGive 8 hours after the intra-op cefazolin dose.??For Adults, if ordered IV then reconstitute each 1GM vial with 10mL sterile water or normal saline and administer IV Push over 3-5 minutes. 09/07/2023 completed lactated ringers infusion 100 mL/hr, Intravenous, Continuous, Starting on Maribel 09/04/23 at 1545, PACU/Floor 09/07/2023 active senna-docusate (PERICOLACE) 8.6-50 MG Take 1 tablet by mouth 2 (two) times a day. 09/07/2023 active ondansetron (ZOFRAN) injection 4 mg 4 mg, Intravenous, Every 6 hours PRN, nausea, vomiting, Starting on Maribel 09/04/23 at 1528, PACU/FloorTo be given first. 09/07/2023 active amoxicillin (AMOXIL) 500 MG tablet Take 4 tabs 1 hour prior to dental appointment 08/23/2023 active atorvastatin (LIPITOR) tablet 40 mg Take 1 tablet (40 mg total) by mouth daily. 08/23/2023 active nitroglycerin (NITROSTAT) 0.4 MG SL tablet 08/23/2023 active apixaban (Eliquis) 5 MG TABS tablet Take 1 tablet (5 mg total) by mouth 2 (two) times a day. 08/23/2023 active metoprolol succinate (TOPROL-XL) 24 hr tablet 50 mg Take 1 tablet (50 mg total) by mouth daily. 08/23/2023 active lisinopril (PRINIVIL,ZESTRIL) tablet 20 mg Take 1 tablet (20 mg total) by mouth daily. 08/23/2023 active pravastatin (PRAVACHOL) tablet 20 mg Take 1 tablet (20 mg total) by mouth daily. 08/23/2023 aborted aspirin EC 81 MG tablet Take 1 tablet (81 mg total) by mouth daily. 08/23/2023 active fluticasone (Flonase Allergy Relief) 50 MCG/ACT nasal spray Daily, 0 Refills, Maintenance, 11/19/19 13:27:00 EDT 08/23/2023 active acetaminophen (TYLENOL EXTRA STRENGTH) 500 MG tablet Take 2 tablets (1,000 mg total) by mouth every 6 (six) hours as needed for pain. 08/23/2023 active metoprolol succinate (TOPROL-XL) 24 hr tablet 50 mg Take 1 tablet (50 mg total) by mouth daily. 08/20/2023 active amoxicillin (AMOXIL) 500 MG tablet Take 4 tabs 1 hour prior to dental appointment 08/20/2023 active atorvastatin (LIPITOR) tablet 40 mg Take 1 tablet (40 mg total) by mouth daily. 08/20/2023 active acetaminophen (TYLENOL EXTRA STRENGTH) 500 MG tablet Take 2 tablets (1,000 mg total) by mouth every 6 (six) hours as needed for pain. 08/20/2023 active pravastatin (PRAVACHOL) tablet 20 mg Take 1 tablet (20 mg total) by mouth daily. 08/20/2023 active lisinopril (PRINIVIL,ZESTRIL) tablet 20 mg Take 1 tablet (20 mg total) by mouth daily. 08/20/2023 active nitroglycerin (NITROSTAT) 0.4 MG SL tablet 08/20/2023 active fluticasone (Flonase Allergy Relief) 50 MCG/ACT nasal spray Daily, 0 Refills, Maintenance, 11/19/19 13:27:00 EDT 08/20/2023 active apixaban (Eliquis) 5 MG TABS tablet Take 1 tablet (5 mg total) by mouth 2 (two) times a day. 08/20/2023 active aspirin EC 81 MG tablet Take 1 tablet (81 mg total) by mouth daily. 08/20/2023 active acetaminophen (TYLENOL EXTRA STRENGTH) 500 MG tablet Take 2 tablets (1,000 mg total) by mouth every 6 (six) hours as needed for pain. 2023 active lisinopril (PRINIVIL,ZESTRIL) tablet 20 mg Take 1 tablet (20 mg total) by mouth daily. 2023 active metoprolol succinate (TOPROL-XL) 24 hr tablet 50 mg Take 1 tablet (50 mg total) by mouth daily. 2023 active pravastatin (PRAVACHOL) tablet 20 mg Take 1 tablet (20 mg total) by mouth daily. 2023 active nitroglycerin (NITROSTAT) 0.4 MG SL tablet 2023 active apixaban (Eliquis) 5 MG TABS tablet Take 1 tablet (5 mg total) by mouth 2 (two) times a day. 2023 active fluticasone (Flonase Allergy Relief) 50 MCG/ACT nasal spray Daily, 0 Refills, Maintenance, 11/19/19 13:27:00 EDT 2023 active aspirin EC 81 MG tablet Take 1 tablet (81 mg total) by mouth daily. 2023 active amoxicillin (AMOXIL) 500 MG tablet Take 4 tabs 1 hour prior to dental appointment 2023 active levoFLOXacin (LEVAQUIN) 250 MG tablet Take 1 tab daily for 10 days 2023 aborted atorvastatin (LIPITOR) tablet 40 mg Take 1 tablet (40 mg total) by mouth daily. 2023 active Eliquis 5 mg tablet TAKE 1 TABLET BY MOUTH TWICE DAILY 08/10/2023 active nitroglycerin 0.4 mg sublingual tablet 08/10/2023 active atorvastatin 40 mg tablet TAKE 1 TABLET BY MOUTH DAILY 08/10/2023 active lisinopril 20 mg tablet TAKE 1 TABLET BY MOUTH DAILY LISINOPRIL 5 MG BY MOUTH ADDED TO 20 MG DAILY 08/07/2022 active atorvastatin 40 mg tablet TAKE 1 TABLET BY MOUTH DAILY 04/20/2023 active nitroglycerin 0.4 mg sublingual tablet 04/20/2023 active lisinopril 5 mg tablet TAKE 1 TABLET BY MOUTH DAILY 08/07/2022 active metoprolol succinate ER 50 mg tablet,extended release 24 hr TAKE 1 TABLET BY MOUTH DAILY 10/07/2022 active lisinopril 5 mg tablet TAKE 1 TABLET BY MOUTH DAILY 10/07/2022 active lisinopril 20 mg tablet TAKE 1 TABLET BY MOUTH DAILY WITH 5MG TABLETS 10/07/2022 active Eliquis 5 mg tablet TAKE 1 TABLET BY MOUTH TWICE DAILY 04/20/2023 active pravastatin 20 mg tablet TAKE 1 TABLET BY MOUTH DAILY 08/07/2022 active pravastatin 20 mg tablet TAKE 1 TABLET BY MOUTH DAILY 10/07/2022 active metoprolol succinate ER 50 mg tablet,extended release 24 hr TAKE 1 TABLET BY MOUTH DAILY 08/07/2022 active Problems Problem Status Onset Date Problem Type Date of Resolution Source History of hypertension active EncounterDiagnosisAct CTTHSF RAN 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 2022-10-04 ProblemAct ENS_AONECT History of repair of hip joint active 2023-09-18 ProblemAct ENS_AONECT Failed total hip arthroplasty, initial encounter active 2023-09-04 ProblemAct CTTHSFRAN Pain, joint, hip, left active 2016-10-10 ProblemAct CTTHSFRAN History of hyperlipidemia active EncounterDiagnosisAct CTTH SFRAN Serum total bilirubin elevated active EncounterDiagnosisAct CTTHSFRAN History of CVA (cerebrovascular accident) active EncounterDiagnosisAct CTTHSF RAN Osteoarthritis of left hip, unspecified osteoarthritis type active EncounterDiagnosisAct CTTHSFRAN Suspected sleep apnea active EncounterDiagnosisAct CTTHSF RAN Other mechanical complication of internal left hip prosthesis, initial encounter ([facility]) active EncounterDiagnosisAct CTT HNEMG Anemia active EncounterDiagnosisAct CTTHJMH Inadequate oral intake active EncounterDiagnosisAct CTTHJM H Osteoarthritis of hip active EncounterDiagnosisAct CTTHJM H Acute hyponatremia active EncounterDiagnosisAct CTTHSFRAN
--- OUTSIDE RECORDS SUMMARY | 2024-01-28 11:18 | XMS_ITS | Data Portability ---
Author Organization [place] [facility] [place] Address [address] [place] [address] Care Team Providers Care Territory Representative Name Role Phone INEZ PERSON Referring Provider [phone] INEZ PERSON Primary Care Provider Assessment Encounter [...] for left revision total hip replacement at [place] [facility] [place]. Not available 08/08/2023 14:24:12 09/18/2023 09/18/2023 HPI [...] Sheridan MS, PA-C in indirect conjunction with documenting/[facility] provider Juan Carlos Beltran MD. He agrees [...] pain relief in the hip and satisfactory muslim of function in terms of activities of [...] Continue to work on hip conditioning exercises. [id number] medications as needed. Ultimate failure may occur [...] total hip arthropla sty (SURG) 2023 024 [facility] [address], [place], [address], 09/05/2023 10:13:54 Imaging XR, hip, unilatera l, 2 or 3 view 2023 024 [facility], [address], [address], [place], [address], 04/18/2023 12:01:42 XR, hip, unilatera l, 2 or 3 view 2023 024 [email or web address] [facility], [address], [place], [address], 08/08/2023 13:49:10 XR, hip, unilatera l, 2 or 3 view 2023 024 [facility], [address], [place], [address], 10/17/2023 11:49:07 XR, hip, unilatera l, 2 or 3 view 2023 024 [facility], [address], [place], [address], 12/16/2023 16:06:19 Medication Orders None recorded. Patient TargetsNo targets recorded. Patient Instructions Encounter Date Encounter Id Patient Instructions Last Modified By Organization Details Last Modified Time 04/18/2023 [id number] AP pelvis, AP an d lateral of the left hip demonstrates a left hip hemiarthroplasty. There is significant acetabular wear and cyst formation. I do not see significant progression compared to x-rays from 6 months ago. Not available 04/18/2023 11:01:41 08/08/2023 [id number] AP pelvis, AP an d lateral of the left hip demonstrates a left hip hemiarthroplasty. There is significant acetabular wear and cyst formation. I do not see significant progression compared to x-rays from 3 months. Not available 08/08/2023 13:47:12 09/18/2023 [id number] physical therapy * - Diagnosis: Status post revision left sided total hip arthroplasty Evaluate and treat as indicated to reduce pain and to improve strength, mobility, stability, range of motion, and function. Please teach a home exercise plan and incorporate PT into patient's exercise routine. 2-3 sessions weekly for 6-8 weeks. [email or web address] Not available 09/25/2023 09:39:28 10/17/2023 [id number] AP pelvis, AP an d lateral of the left hip demonstrate a left revision total hip replacement. Multihole acetabular component appears in appropriate position without signs of migration. Cemented [place] femoral component with evidence of cement and cement technique. No signs of migration or change in component position or other hardware related complication. Not available 10/17/2023 11:24:19 12/16/2023 [id number] AP pelvis, AP an d lateral of [...] THE LEFT HIP WITHOU T CONTRA ST, [facility] INFORM ATION: Pre-op erativ [...] t contra st accord ing to the [facility]. Multip lanar reform atted images were submit [...] patien t to us, Ervin lozano MD [id number] (Elect nery miranda Signed - 2023 09:14) Copy: XOCHITL T , [email or web address] [address] [facility] [address], [place], [address], 09/08/2023 06:28:14 09/10/1908/29/2023 XR, pelvi s, 1 [...] patien t to us, Louise taylor MD [id number] (Roberto miranda Signed - 2023 08:52) [email or web address] [address] [address], [place], [address], 09/10/2023 10:29:47 Result Notes None recorded. Problems Name Problem SNOMED Code Status Onset Date Resolution Date Notes Provider Name and Address Organization Details Recorded Time Mechanical complication of internal joint prosthesis 222330763 Active 2022 Juan Carlos Beltran MD [address], [place], [address], [place] [facility], P 3 11:50:26 History of repair of hip joint 561792447 Active 2023 KRISTINE SHERIDAN PA-C [address] [facility],[address], [place], [address] , [place] [facility], P 14:50:17 Problem Notes None recorded. Procedures Surgical History Date Name Laterality Status Provider Name and Address Organization Details Recorded Time 09/04/19 24 TOTAL HIP ARTHROPLASTY (SURG) completed Heydi Bass [place] [facility], [facility] 09/05/2023 10:14:10 01/21/20 17 Hip Surgery completed Yessenia Fraga [facility] 10/04/2022 11:01:48 Imaging Results Imaging Date Name Status LastModified by Organiz ation Details LastModified Time 08/29/2023 CT, hip + pelvis, w/o contrast completed [facility] [address] [facility] [address], [place], [address], 09/08/2023 06:28:14 08/29/2023 XR, pelvis, 1 or 2 view completed [facility] [address] [facility] [address], [place], [address], 09/10/2023 10:29:47 Procedure Notes None recorded. Medical [...] Updated DateTime 04/18/2023 175.26 cm 26 kg/m2 58940.26 g Ciara Reinoso [facility] 04/18/2023 10:51:40 Date Recorded Body height Body mass index (BMI) Body weight Provider Name and Address Organization Details Last Updated DateTime 08/08/2023 175.26 cm 26 kg/m2 48125.26 brian Madden [facility] 08/08/2023 13:04:46 Date Recorded Body height Body mass index (BMI) Body weight Provider Name and Address Organization Details Last Updated DateTime 09/18/2023 175.26 cm 26 kg/m2 66048.26 g Felipa Cowan [facility] 09/18/2023 14:30:37 Date Recorded Body height Body mass index (BMI) Body weight Provider Name and Address Organization Details Last Updated DateTime 10/17/2023 175.26 cm 26 kg/m2 20797.26 g Ciara Reinoso [facility], P 10/17/2023 10:45:45 Date Recorded Body height Body mass index (BMI) Body weight Provider Name and Address Organization Details Last Updated DateTime 12/16/2023 175.26 cm 26 kg/m2 19625.26 g Ciara Reinoso [facility], P 12/16/2023 13:18:59 Social History Question Answer Notes LastModified by Organizat ion Details LastModified Time Tobacco Smoking Status Former Smoker Yessenia huerta, [place] [facility] 08/05/2022 11:35:20 When Did You Quit [...] Diagnosis/Indication Diagnosis SNOMED-CT Code Diagnosis ICD10 Code [id number] [facility] [address] [place] [address] 08/05/2022 11:11:05 08/05/2022 11:41:55 History of total replacement of left hip joint 8116766464 768021 Z96.642 [id number] MD RAFIA Card[place] [address] 10/04/2022 10:40:59 10/04/2022 11:15:29 History of left hip replacement 5152668390 462004 Z96.642 Mechanical complication of internal joint prosthesis 444913591 T84.091A [id number] MD [facility] [address] [address] 04/18/2023 10:16:02 04/18/2023 11:07:34 History of total replacement of left hip joint 1150780001 694714 Z96.642 Mechanical complication of internal joint prosthesis 454546292 T84.091A [id number] MD RAFIA Cardozo [place] [address] 08/08/2023 12:55:25 08/08/2023 13:49:10 History of repair of hip joint 098931227 Z96.642 Mechanical complication of internal joint prosthesis 593634871 T84.091A History of total hip arthroplasty 2711358931 06 Z96.649 [id number] MD RAFIA Cardozolatonya [address] [address] 09/18/2023 14:25:01 09/18/2023 14:50:37 History of repair of hip joint 603439323 Z96.642 [id number] MD [facility] [address] [place] [address] 10/17/2023 10:41:41 10/17/2023 11:28:57 History of total replacement of left hip joint 3128613514 622623 Z96.642 Surgical follow-up 23218 4000 Z47.1 Z96.642 [id number] MD RAFIA Cardozo [place] [address] [facility] [address] [place] [address] 12/16/2023 13:10:09 12/16/2023 13:42:28 History of repair of hip joint 733216672 Z96.642 Health Concerns Section Related Observation LastModified by Organization Detai ls LastModified Time None Recorded Concern Status LastModified by Organization Details LastModified Time None Recorded Advance Directives Directive None Recorded Payers Encounter Date Sequence Insurance Name Policy Number Policy Anderson Covered Member ID Anderson Member ID Guarantor Name 08/08/2023 1 [facility] - MEDICARE PREFERRED (MEDICARE REPLACEMENT HMO) [facility] Addi Ordonez [id number] 1 Addi Mery 09/18/2023 1 [facility] - MEDICARE PREFERRED (MEDICARE REPLACEMENT HMO) [facility] Addi Ordonez [id number] 1 Addi Ordonez 10/17/2023 1 [facility] - MEDICARE PREFERRED (MEDICARE REPLACEMENT HMO) [facility] Addi Ordonez [id number] 1 Addi Ordonez 12/16/2023 1 [facility] - MEDICARE PREFERRED (MEDICARE REPLACEMENT HMO) [facility] Addi Ordonez [id number] 1 Addi Mery
--- OUTSIDE RECORDS SUMMARY | 2024-01-28 11:18 | XMS_ITS | Continuity of Care Document ---
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 Patient is [...] pain relief in the hip and satisfactory jain of function in terms of activities of [...] Continue to work on hip conditioning exercises. [id number] medications as needed. Ultimate failure may occur [...] available Not available Not available Lab None recorded . Referral None recorded . Procedures None recorded . Surgeries None recorded . Imaging XR, hip, unilater al, 2 or 3 view 2023 024 [facility], [address], [address], [place], [address], 12/16/2023 16:06:19 Medication Orders None recorded . Patient TargetsNo targets recorded. Patient Instructions Encounter Date Encounter Id Patient Instructions Last Modified By Organization Details Last Modified Time 12/16/2023 [id number] AP pelvis, AP an d lateral of the left hip demonstrates a left revision total hip replacement with multihole acetabular component which appears well-fixed. There is a cemented femoral component. There is no change in lucent lines or position of component compared to prior x-rays from October. Not available 12/16/2023 13:43:50 Reason for Referral None Reported. Problems Name Problem SNOMED Code Status Onset Date Resolution Date Notes Provider Name and Address Organization Details Recorded Time Mechanical complication of internal joint prosthesis 362115866 Active 2022 Juan Carlos Beltran MD [address], [place], [address], [place] [facility], P 3 11:50:26 History of repair of hip joint 016796712 Active 2023 KRISTINE BOWEN PA-C [address] [facility],[address], [place], [address], [place] [facility], P 4 14:50:17 Problem Notes None recorded. Procedures Surgical History Date Name Laterality Status Provider Name and Address Organization Details Recorded Time 09/04/19 24 TOTAL HIP ARTHROPLASTY (SURG) completed Heydi Bass [place] [facility], P 09/05/2023 10:14:10 01/21/20 17 Hip Surgery completed Yessenia Fraga [place] [facility], [facility] 10/04/2022 11:01:48 Imaging Results None recorded. Procedure Notes None recorded. Medical Equipment None [...] Updated DateTime 12/16/2023 175.26 cm 26 kg/m2 43995.26 g [facility]ara Reinoso [place] [facility] 12/16/2023 13:18:59 Social History Question Answer Notes LastModified by Organizat ion Details LastModified Time Tobacco Smoking Status Former Smoker Yessenia Fraga [facility], [place] [facility], P 08/05/2022 11:35:20 When Did You Quit [...] Diagnosis/Indication Diagnosis SNOMED-CT Code Diagnosis ICD10 Code [id number] Juan Carlos Beltran MD [address] [place] [address] 12/16/2023 13:10:09 12/16/2023 13:42:28 History of repair of hip joint 812610628 Z96.642 Health Concerns Section Related Observation LastModified by Organization Detai ls LastModified Time None Recorded Concern Status LastModified by Organization Details LastModified Time None Recorded Payers Encounter Date Sequence Insurance Name Policy Number Policy Anderson Covered Member ID Anderson Member ID Guarantor Name 12/16/2023 1 [facility] - MEDICARE PREFERRED (MEDICARE REPLACEMENT HMO) HAM Addi Ordonez [id number] Addi Ordonez
--- NOTE | 2024-01-28 11:23 | HO.NEPHOV ---
Vital Signs 01/28/24 11:24 Height 5 ft 9 in Weight 171 lb 6 oz BMI 25.3 BP 122/74 Blood Pressure Location Lt brachial Position Sitting Pulse 67 Pulse Source Pulse Oximeter Pulse Oximetry (%) 97 Oxygen Delivery Method Room Air Intake Visit Reasons: 6 mo fu w/ labs-Conf Addictions Recovery Specialist Required: No Accompanied by: Self / Same As Patient Allergies No Known Allergies Allergy (Verified 01/28/24 11:23) HPI Comments Details: I had the privilege of seeing Remi in follow up for hyponatremia. He has history of atrial fibrillation but no history of heart failure. He has no history of liver failure or renal failure. He has no history of depression and is not on any antidepressant medications. He has no nausea, vomiting or diarrhea. He has no pedal edema. He has no history of hyperkalemia or hypotension. He denies compulsive water drinking. He has no history of seizures but had CVA. He has not on any diuretics. He tries to be good with fluid restriction. He drinks 2 beers a day. He has no weakness or mental status changes. His last serum sodium was 135. He had left hip replacement. 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 A-fib Surgical History H/O colonoscopy Social History Alcohol intake: current Patient Tobacco Use Status: Former Tobacco user Physical Exam Vital Signs: Last Vital Signs Pulse 67 01/28/24 11:24 BP 122/74 01/28/24 11:24 Pulse Ox 97 01/28/24 11:24 Oxygen Delivery Method Room Air 01/28/24 11:24 BMI result Body Mass Index 25.3 Const General: comfortable and no acute distress Orientation/consciousness: patient oriented x3 HEENT Head: Yes normocephalic Mouth: Normal oral and palatal mucosa present Eyes EOM: EOMs intact bilaterally Neck Neck: Yes supple Resp Auscultation: clear to auscultation bilaterally Cardio Jugular venous distension: no JVD Rate: regular rate GI Palpation (GI): Soft to palpation Auscultation: normal bowel sounds General: Yes no CVA tenderness Back/Spine/Pelvis Back: no CVA tenderness Skin General skin exam: no rashes or lesions noted Neuro General: patient oriented x3 and moves all extremities Extrem General: Yes no pedal edema Results Reviewed Nephrology Results: Sodium 135 mmol/L (135-145) 01/22/24 Potassium 4.4 mmol/L (3.3-5.1) 01/22/24 Chloride 101 mmol/L (96-108) 01/22/24 Carbon Dioxide 24 mmol/L (22-29) 01/22/24 BUN 12 mg/dL (9-16) 01/22/24 Creatinine 0.73 mg/dL (0.5-1.4) 01/22/24 Calcium 9.9 mg/dL (8.4-10.2) 07/17/23 Assessment & Plan Assessment & Plan (1) Hyponatremia: Code(s): E87.1 - Hypo-osmolality and hyponatremia Category: Medical (2) Essential (primary) hypertension: Code(s): I10 - Essential (primary) hypertension Category: Medical Plan Remi has H/O hyponatremia for some time. His serum sodium had been fluctuant, but stable now. He is hypertensive but not on any diuretics. He has no history of heart failure, liver failure or renal failure. He has no edema. He has no history of hyperkalemia or hypotension. He has no nausea, vomiting or diarrhea. He denies compulsive free water drinking but has 2 beers every day. He has history of CVA. 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 He has no weakness or mental status changes. I discussed with him the etiologies of low-sodium, investigations and management. We agreed on monitoring the blood work closely and initiating on medications when it is absolutely necessary. His blood pressure is at goal on current medication regimen . All his questions were answered. Orders: Orders Creatinine 8 Months E87.1 - Hypo-osmolality and hyponatremia, I10 - Essential (primary) hypertension Electrolytes 8 Months E87.1 - Hypo-osmolality and hyponatremia, I10 - Essential (primary) hypertension Blood Urea Nitrogen 8 Months E87.1 - Hypo-osmolality and hyponatremia, I10 - Essential (primary) hypertension Coding Level of Care Code Est Pt Level 4 (75248) Diagnoses Hyponatremia E87.1 Essential (primary) hypertension I10
[2024-01-28 11:24] VITALS: BP 122/74; PULSE 67; O2SAT 97; BMI 25.3
== END 2024-01-28 11:40 | disposition home or self-care (01) ==
PROVIDERS: PCP Family Medicine; Referring Provider Family Medicine; Visit Provider Internal Medicine Nephrology
DX: E87.1 Hypo-osmolality and hyponatremia (principal); I10 Essential (primary) hypertension
CPT/HCPCS: 99214

== ENCOUNTER → 2024-01-28 11:16 | Outpatient (BNVA) | payer OTHER, SELFPAY | PROVIDERS: PCP Family Medicine; Visit Provider Internal Medicine Nephrology ==

== ENCOUNTER 2024-09-27 11:19 | Outpatient (REF) | payer OTHER, SELFPAY ==
--- OUTSIDE RECORDS SUMMARY | 2024-09-27 12:39 | XMS_ITS ---
Author Name [facility] Organization Unknown Results Test Name/Text Value Interpretation Date Range Source ABO+RH GP BLD A POSITIVE Normal 09/04/2023 [facility] CMNT PATIENT-IMP Testing performed at [facility], [address] [place] [address], Anisha Brian MD [place], [facility] [id number] Normal 09/04/2023 [facility] ABO+RH GP BLD A POSITIVE Normal 09/04/2023 [facility] CMNT PATIENT-IMP Testing performed at [facility], [address] [place] [address], Anisha Brian MD [address] [place], CLIA [id number] Normal 09/04/2023 [facility] BLD GP AB SCN SERPL QL NEGATIVE Normal 09/04/2023 [facility] History of Medication Use Medication Directions Dispensed Refills Start Date End Date Stat ondansetron (ZOFRAN-ODT) 8 MG disintegrating tablet Take 1 tablet (8 mg total) by mouth every 8 (eight) hours as needed for nausea for up to 7 days. 09/05/2023 09/13/19 24 active sulfamethoxazole-tr imethoprim (BACTRIM DS) 800-160 MG per tablet 160 mg of trimethoprim 160 mg of trimethoprim (1 tablet), Oral, Every 12 hours scheduled (2 times per day), First dose on Maribel 09/04/23 at 2100, For 7 days 09/05/2023 09/12/19 24 active ceFAZolin (ANCEF) injection 2 g 2 g, Intravenous, Every 8 hours, First dose on Maribel 09/04/23 at 2000, For 1 dose, PACU/FloorGive 8 hours after the intra-op cefazolin dose. For Adults, if ordered IV then reconstitute each 1GM vial with 10mL sterile water or normal saline and administer IV Push over 3-5 minutes. 09/05/2023 09/05/19 completed orphenadrine (NORFLEX) injection 30 mg 30 mg, Intravenous, Once as needed, muscle spasms, for musculoskeletal pain, to achieve pain scale less than or equal to 4, Starting on Maribel 09/04/23 at 1527, For 1 dose, PACU/Phase 1 09/04/2023 09/04/19 completed bisacodyl (DULCOLAX) suppository 10 mg 10 mg, Rectal, Daily as needed, constipation, Starting on Maribel 09/04/23 at 1726Hold for patients with history of IBS, IBO, Ileostomy. 09/04/2023 active HYDROmorphone (DILAUDID) injection 0.5 mg 0.5 mg, Intravenous, Every 4 hours PRN, severe pain (7-10), Starting on Maribel 09/04/23 at 1528, PACU/FloorAdminister IV push over 2-3 minutes. 09/04/2023 active lactated ringers infusion 100 mL/hr, Intravenous, Continuous, Starting on Maribel 09/04/23 at 0930, Pre-op 09/04/2023 active methocarbamol (ROBAXIN) 750 MG tablet Take 1 tablet (750 mg total) by mouth every 6 (six) hours as needed. 09/04/2023 active oxyCODONE (ROXICODONE) 5 MG immediate release tablet 10 mg 10 mg, Oral, Every 4 hours PRN, moderate pain (4-6), Starting on Maribel 09/04/23 at 1528, PACU/Floor 09/04/2023 active amoxicillin (AMOXIL) 500 MG tablet Take 4 tabs 1 hour prior to dental appointment 07/31/2021 active pravastatin (PRAVACHOL) tablet 20 mg Take 1 tablet (20 mg total) by mouth daily. 04/25/2020 08/20/19 aborted pravastatin (PRAVACHOL) tablet 20 mg Take 1 tablet (20 mg total) by mouth daily. 04/25/2020 active fluticasone (Flonase Allergy Relief) 50 MCG/ACT nasal spray Daily, 0 Refills, Maintenance, 11/19/19 13:27:00 EDT 11/19/2019 active lisinopril tablet 20 mg 20 mg, Oral, Daily, First dose on Fri09/05/23 at 0900 09/29/2016 active metoprolol succinate (TOPROL-XL) 24 hr tablet 50 mg Take 1 tablet (50 mg total) by mouth daily. 09/29/2016 active metoprolol succinate (TOPROL-XL) 24 hr tablet 50 mg 50 mg, Oral, Daily, First dose on Fri09/05/23 at 0900Do not crush tablet. 09/29/2016 active metoprolol succinate (TOPROL-XL) 24 hr tablet 50 mg Take 1 tablet (50 mg total) by mouth daily. 09/29/2016 active Eliquis 5 mg tablet TAKE 1 TABLET BY MOUTH TWICE DAILY active metoprolol succinate ER 50 mg tablet,extended release 24 hr TAKE 1 TABLET BY MOUTH DAILY active metoprolol succinate ER 50 mg tablet,extended release 24 hr TAKE 1 TABLET BY MOUTH DAILY active acetaminophen (TYLENOL EXTRA STRENGTH) 500 MG tablet Take 2 tablets (1,000 mg total) by mouth every 6 (six) hours as needed for pain. active aspirin EC 81 MG tablet Take 1 tablet (81 mg total) by mouth daily. active aspirin EC 81 MG tablet Take 1 tablet (81 mg total) by mouth daily. 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-04 ProblemAct [facility] History of hypertension active EncounterDiagnosisAct [facility] Osteoarthritis of left hip, unspecified osteoarthritis type active EncounterDiagnosisAct [facility] History of hyperlipidemia active EncounterDiagnosisAct [facility] Other mechanical complication of internal left hip prosthesis, initial encounter ([facility]) active EncounterDiagnosisAct [facility] Serum total bilirubin elevated active EncounterDiagnosisAct [facility] Suspected sleep apnea active EncounterDiagnosisAct [facility] History of CVA (cerebrovascular accident) active EncounterDiagnosisAct [facility] Osteoarthritis of hip active EncounterDiagnosisAct [facility] H Anemia active EncounterDiagnosisAct [facility] Inadequate oral intake active EncounterDiagnosisAct [facility] H 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 2022-10-04 ProblemAct [facility] History of repair of hip joint active 2023-09-18 ProblemAct [facility] Encounters Encounter Type Encounter Reason Primary Diagnosis Location Date Ambulatory [facility] 06/16/2024 Ambulatory [facility] 06/15/2024 Ambulatory [facility] 06/15/2024 Ambulatory [facility] 12/17/2023 Ambulatory [facility] 12/16/2023 Ambulatory [facility] 10/17/2023 Ambulatory [facility] 10/17/2023 Ambulatory [facility] 10/17/2023 Ambulatory [facility] 09/18/2023 Inpatient Encounter for other preprocedural examination Encounter for other preprocedural examination [facility] 09/04/2023 Ambulatory Anemia, unspecified Anemia, unspecified [facility] 08/13/2023 Ambulatory [facility] 08/12/2023 Ambulatory [facility] 08/11/2023 Ambulatory [facility] 08/08/2023 Ambulatory [facility] 04/18/2023 Ambulatory [facility] 03/25/2023 Ambulatory [facility] 10/30/2022 Ambulatory [facility] 10/11/2022 Ambulatory [facility] 10/10/2022 Ambulatory [facility] 10/04/2022 Ambulatory [facility] 10/04/2022 Ambulatory [facility] 10/04/2022 Ambulatory [facility] 10/04/2022 Ambulatory [facility] 10/04/2022 Ambulatory [facility] 08/05/2022 Ambulatory [facility] 05/16/2022 Care Team Organization Name Specialty Phone Email Start Date End Da te [facility] INEZ PERSON Primary Care 08/18/2023 [facility] INEZ PERSON Primary Care 07/0 06/2023 [facility] NAYA Primary Care 08/14/2023 08/24/2024 [facility] Primary Care 03/202308/24/2024
--- OUTSIDE RECORDS SUMMARY | 2024-09-27 12:39 | XMS_ITS | Clinical Summary ---
Author Organization [employer] [facility] it Address [address] [place] [address] Care Team Providers Care Hospital Attendant Name Role Phone Mor Archuleta DO Primary Care Provider [phone] Immunizations Name Administration Dates Next Due Pfizer SARS-CoV-2 COVID-19, mRNA, LNP-S, preservative free 11/24/2020,04/12/2020,03/22/2020 Surgical History Surgery Date Site/Laterality Comments BACK SURGERY PROCEDURE:BACK SURGERY COLONOSCOPY PROCEDURE:COLONOSCOPY TOTAL HIP ARTHROPLASTY 01/20/2017 Left PROCEDURE:TOTAL HIP ARTHROPLASTY Medical History Medical History Date Comments Hypertension DX:Hypertension History of transfusion DX:Histor y of transfusion Osteoarthritis DX:Osteoarthriti s Hyperlipidemia DX:Hyperlipidemi a Stroke (CMS/HCC V24, [facility]/HCC V28) 08/2022 DX:Stroke (HCC[place] Atrial fibrillation ([facility]/HCC V24, [facility] V28) DX:Atrial fibrillation (HCC);COMMENT:Persistent Family History Medical History Relation Name Comments Emphysema Father Arthritis Mother Lung cancer Sister Ana Lilia Relation Name Status Comments Brother Aquiles (Age 90) Father (Age 86) Mother (Age 76) Sister Ana Lilia (Age 85) Social History Tobacco Use Types Packs/Day Years Used Date Smoking Tobacco: Former Cigarettes Q uit: 02/10/1979 Smokeless Tobacco: Never Alcohol Use Standard Drinks/Week Comments Yes 14 (1 standard drink = 0.6 oz pu re alcohol) Sex and Gender Information Value Date Recorded Sex Assigned at Not on file Legal Sex Male 12:16 PM EST Gender Identity Not on file Sexual Orientation Not on file Obstetrics History Last Filed Vital Signs Vital Sign Reading Time Taken Comments Blood Pressure 117/73 08/20/2023 10:43 AM EDT Sitting Left arm Pulse 74 08/20/2023 10:43 AM EDT Temperature - - Respiratory Rate - - Oxygen Saturation - - Inhaled Oxygen Concentration - - Weight 74.4 kg (164 lb) 08/20/2023 10:4 3 AM EDT Height 171 cm (5' 7.32 ) 08/20/2023 10: 43 AM EDT Body Mass Index 25.44 08/20/2023 10:43 AM EDT Plan of Treatment Health Maintenance Due Date Last Done Comments DTaP,Tdap,and Td Vaccines (1 - Tdap) 1959 Pneumococcal Vaccine: 50+ Years (1 of 1 - PCV) 08/20/1991 Zoster Vaccines (1 of 2) 08/20/1991 RSV Immunization Adult Patients (1 - 1-dose 75+ series) 2016 Cholesterol Screening (Lipid Panel) 01/23/2022 Falls Risk Assessment 01/23/2022 Social Influencers of Health Screening 01/23/2022 COVID-19 Vaccine (4 - 2023-2 5 season) 2023 11/24/2020, 04/12/2020, 03/22/2020 Depression Screening 02/11/2024 Influenza Vaccine (#1) 2024 HIB Vaccines Aged Out No longer eligi ble based on patient's age to complete this topic HPV Vaccines Aged Out No longer eligi ble based on patient's age to complete this topic Hepatitis A Vaccines Aged Out No long er eligible based on patient's age to complete this topic Hepatitis B Vaccines Aged Out No long er eligible based on patient's age to complete this topic IPV Vaccines Aged Out No longer eligi ble based on patient's age to complete this topic MMR Vaccines Aged Out No longer eligi ble based on patient's age to complete this topic Meningococcal ACWY Vaccine Aged Out N o longer eligible based on patient's age to complete this topic Meningococcal B Vaccine Aged Out No l onger eligible based on patient's age to complete this topic RSV Immunization Patients Under 20 months Aged Out No longer eligible b ased on patient's age to complete this topic Varicella Vaccines Aged Out No longer eligible based on patient's age to complete this topic Medical Devices Implanted Type Area Resolute Professional Device Identifier Shelf Expiration Date Model / Serial / Lot Multihole Acetabular Shell 56f 13h [facility] [id number] Implanted:Qty: 1 on 09/04/2023 by Juan Carlos Beltran MD Left: Hip [employer] [id number] 01/03/2028 709-04-56F / / [id number] Lp Hex Screw 6.5x20mm Stry-Howm [id number] Implanted:Qty: 1 on 09/04/2023 by Juan Carlos Beltran MD Left: Hip [employer] [id number] 03/24/2028 5172-9273 / / [id number] Kit Prep Total Hip Bone Imp [facility] [id number] Implanted:Qty: 1 on 09/04/2023 by Juan Carlos Beltran MD Left: Hip [employer] [id number] / / [id number] Hip Stem [place] Cemented Sz 1 37.5z099to Stry-Howm [id number] [id number] Implanted:Qty: 1 on 09/04/2023 by Juan Carlos Beltran MD Left: Hip [employer] 0580-3-371 / / [id number] Hip Head Delta Biolox 28mm-0 Stry-Howm [id number] Implanted:Qty: 1 on 09/04/2023 by Juan Carlos Beltran MD Left: Hip [employer] 6570-0-128 / / [id number] Cement Bone Surg Simplex Radiopq Stry-Howm [id number] 092 Implanted:Qty: 2 on 09/04/2023 by Juan Carlos Beltran MD Left: Hip [employer] 6191-1-010 / / Lp Hex Screw 6.5x25mm Stry-Howm [id number] 58 Implanted:Qty: 1 on 09/04/2023 by Juan Carlos Beltran MD Left: Hip [employer] [id number] 06/17/2028 6934-8496 / / [id number] Hip Insrt Mod Dl Mobility 46mm Stry-Howm [id number] Implanted:Qty: 1 on 09/04/2023 by Juan Carlos Beltran MD Left: Hip [employer] [id number] 08/02/2028 626-00-46F / / [id number] ++Dnu+Disc Use [id number] Hip Insert Adm X3 28 52mm Stry-Howm [id number] Implanted:Qty: 1 on 09/04/2023 by Juan Carlos Beltran MD Left: Hip [employer] [id number] 12/26/2027 1236-2-852 / / [id number] Lp Hex Screw 6.5x30mm Stry-Howm [id number] 78 Implanted:Qty: 1 on 09/04/2023 by Juan Carlos Beltran MD Left: Hip [employer] [id number] 05/04/2028 9215-6551 / / [id number] Lp Hex Screw 6.5x20mm Stry-Howm [id number] 57 Implanted:Qty: 1 on 09/04/2023 by Juan Carlos Beltran MD Left: Hip [employer] [id number] 03/23/2028 9894-8200 / / [id number] Lp Hex Screw 6.5x20mm Stry-Howm [id number] 57 Implanted:Qty: 1 on 09/04/2023 by Juan Carlos Beltran MD Left: Hip [employer] [id number] 04/06/2028 0313-6014 / / [id number] Lp Hex Screw 6.5x15mm Stry-Howm [id number] 77 Implanted:Qty: 1 on 09/04/2023 by Juan Carlos Beltran MD Left: Hip [employer] [id number] 03/04/2028 2550-8207 / / [id number] Lp Hex Screw 6.5x15mm Stry-Howm [id number] 77 Implanted:Qty: 1 on 09/04/2023 by Juan Carlos Beltran MD Left: Hip [employer] [id number] 03/09/2028 8993-5809 / / [id number] Care Teams Hospital Attendant Relationship Specialty Start Date End Date Mor Archuleta DO [address] [place], [place] PCP - General Family Medicine 09/23/16
--- OUTSIDE RECORDS SUMMARY | 2024-09-27 12:39 | XMS_ITS | Clinical Summary ---
Author Organization [facility] Address [address] [place] [address] Care Team Providers Care Environmental Health Inspector Name Role Phone Mor Archuleta MD Primary Care Provider Allergies No known active allergies Medications Medication Sig Dispensed Refills Start Date End Date Status lisinopril (PRINIVIL,ZESTRIL) tablet 20 mg Take 1 tablet (20 mg total) by mouth daily. 0 09/29/2016 Active metoprolol succinate (TOPROL-XL) 24 hr tablet 50 mg Take 1 tablet (50 mg total) by mouth daily. 0 09/29/2016 Active amoxicillin (AMOXIL) 500 MG tablet Take 4 tabs 1 hour prior to dental appointment 20 tablet 3 07/31/2021 Active atorvastatin (LIPITOR) tablet 40 mg Take 1 tablet (40 mg total) by mouth daily. 0 11/19/2022 Active fluticasone (Flonase Allergy Relief) 50 MCG/ACT nasal spray Daily, 0 Refills, Maintenance, 11/19/19 13:27:00 EDT 0 11/19/2019 Active acetaminophen (TYLENOL EXTRA STRENGTH) 500 MG tablet Take 2 tablets (1,000 mg total) by mouth every 8 (eight) hours. 30 tablet 0 09/05/2023 Active methocarbamol (ROBAXIN) 750 MG tablet Take 1 tablet (750 mg total) by mouth every 6 (six) hours as needed. 40 tablet 0 09/05/2023 Active senna-docusate (PERICOLACE) 8.6-50 MG Take 1 tablet by mouth 2 (two) times a day. 20 tablet 0 09/05/2023 Active oxyCODONE (ROXICODONE) 5 MG immediate release tablet Take 1 tablet (5 mg total) by mouth every 4 (four) hours as needed for pain. 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/2023 Follow-up exam, 7 months to 1 year since previou s exam 07/31/2021 Pain, joint, hip, left 10/10/2016 Family History Medical History Relation Name Comments Emphysema Father Arthritis Mother Lung cancer Sister Ana Lilia Relation Name Status Comments Brother Aquiles (Age 90) Father (Age 86) Mother (Age 76) Sister Ana Lilia (Age 85) Social History Tobacco Use Types Packs/Day Years Used Date Smoking Tobacco: Former Cigarettes Q uit: 1979 Smokeless Tobacco: Never Tobacco Cessation:Counseling Given: Not Answered Alcohol Use Standard Drinks/Week Comments Yes 14 (1 standard drink = 0.6 oz pu re alcohol) Sex and Gender Information Value Date Recorded Sex Assigned at Male 08/12/2023 9:27 AM EDT Gender Identity Male 08/12/2023 9:27 AM EDT Sexual Orientation Straight 09/04/2023 9: 20 AM EDT Job Start Date Occupation Industry Not on file Not on file Not on file Last Filed Vital Signs Vital Sign Reading Time Taken Comments Blood Pressure 126/82 09/05/2023 7:49 AM EDT Pulse 80 09/05/2023 7:49 AM EDT Temperature 36.7 C (98.1 F) 09/05/2023 7:49 AM EDT Respiratory Rate 17 09/05/2023 7:49 AM EDT Oxygen Saturation 96% 09/05/2023 7:49 AM EDT Inhaled Oxygen Concentration - - Weight 74.4 kg (164 lb) 09/04/2023 9:29 AM EDT Height 177.8 cm (5' 10 ) 09/04/2023 9:29 AM EDT Body Mass Index 23.53 09/04/2023 9:29 AM EDT Plan of Treatment Health Maintenance Due Date Last Done Comments Depression Screening 1952 Preventative Health Evaluation 08/20/1959 DTap / Tdap / Td (1 - Tdap) 1960 Shingrix-Zoster Vaccine (1 of 2) 08/20/1991 Fall Risk Assessment 2006 Pneumococcal Vaccine (1 of 1 - PCV) 2006 RSV Adult > 60+ Yrs or (1 - 1-dose 75+ series) 2016 COVID-19 Vaccine ( season) 2023 11/24/2020, 04/12/2020, 03/22/2020 Influenza Vaccine (#1) 2024 2, 11/01/2020, 10/11/2019, Additional history exists Hepatitis B Vaccines Aged Out No long er eligible based on patient's age to complete this topic RSV Ped < 20 months Aged Out No longe r eligible based on patient's age to complete this topic Medical Devices Implanted Type Area Radio Operator Ground Device Identifier Shelf Expiration Date Model / Serial / Lot Multihole Acetabular Shell 56f 13h Stry-Howm [id number] - [id number] Implanted:Qty: 1 on 09/04/2023 by Juan Carlos Beltran MD at [facility] [place] [facility] Left: Hip [employer] [id number] 01/03/2028 709-04-56F / / [id number] Lp Hex Screw 6.5x20mm Stry-Howm 7715-5331-0092 57 - [id number] Implanted:Qty: 1 on 09/04/2023 by Juan Carlos Beltran MD at [facility] [place] [facility] Left: Hip [employer] [id number] 03/24/2028 6880-4293 / / [id number] Kit Prep Total Hip Bone Imp [facility]Or[facility] 063468-979941 - [id number] Implanted:Qty: 1 on 09/04/2023 by Juan Carlos Beltran MD at [facility] [place] [facility] Left: Hip [employer] [id number] / / [id number] Hip Stem [place] Cemented Sz 1 37.5p779cg Stry-Howm 1011-4-560-780 895 - [id number] Implanted:Qty: 1 on 09/04/2023 by Juan Carlos Beltran MD at [facility] [place] [facility] Left: Hip [employer] 0580-3-371 / / [id number] Hip Head Delta Biolox 28mm-0 Stry-Howm 4186-1-260-549 188 - [id number] Implanted:Qty: 1 on 09/04/2023 by Juan Carlos Beltran MD at [facility] [place] [facility] Left: Hip [employer] 6570-0-128 / / [id number] Cement Bone Surg Simplex Radiopq Stry-Howm 5843-7-208-114 092 - [id number] Implanted:Qty: 2 on 09/04/2023 by Juan Carlos Beltran MD at [facility] [place] [facility] Left: Hip [employer] 6191-1-010 / / Lp Hex Screw 6.5x25mm Stry-Howm 9763-2418-4874 58 - [id number] Implanted:Qty: 1 on 09/04/2023 by Juan Carlos Beltran MD at [facility] [place] [facility] Left: Hip [employer] [id number] 06/17/2028 7966-8065 / / [id number] Hip Insrt Mod Dl Mobility 46mm Stry-Howm 355-13-33y-551 384 - [id number] Implanted:Qty: 1 on 09/04/2023 by Juan Carlos Beltran MD at [facility] [place] [facility] Left: Hip [employer] [id number] 08/02/2028 626-00-46F / / [id number] ++Dnu+Disc Use [id number] Hip Insert Adm X3 28 52mm Stry-Howm 3748-2-789-551 467 - [id number] Implanted:Qty: 1 on 09/04/2023 by Juan Carlos Beltran MD at [facility] [place] [facility] Left: Hip [employer] [id number] 12/26/2027 1236-2-852 / / [id number] Lp Hex Screw 6.5x30mm Stry-Howm 1477-1564-0409 78 - [id number] Implanted:Qty: 1 on 09/04/2023 by Juan Carlos Beltran MD at [facility] [place] [facility] Left: Hip [employer] [id number] 05/04/2028 2683-1882 / / HHYH Lp Hex Screw 6.5x20mm Stry-Howm 4927-9724-2934 57 - [id number] Implanted:Qty: 1 on 09/04/2023 by Juan Carlos Beltran MD at [facility] [place] [facility] Left: Hip [employer] [id number] 03/23/2028 0203-7258 / / [id number] Lp Hex Screw 6.5x20mm Stry-Howm 6675-5138-5957 57 - [id number] Implanted:Qty: 1 on 09/04/2023 by Juan Carlos Beltran MD at [facility] [place] [facility] Left: Hip [employer] [id number] 04/06/2028 8667-8355 / / HDVH Lp Hex Screw 6.5x15mm Stry-Howm 6676-0991-5392 77 - [id number] Implanted:Qty: 1 on 09/04/2023 by Juan Carlos Beltran MD at [facility] [place] [facility] Left: Hip [employer] [id number] 03/04/2028 5799-8152 / / [id number] Lp Hex Screw 6.5x15mm Stry-Howm 7028-8560-0706 77 - [id number] Implanted:Qty: 1 on 09/04/2023 by Juan Carlos Beltran MD at [facility] [place] [facility] Left: Hip [employer] [id number] 03/09/2028 2935-8297 / / [id number] Advance Directives For more information, please contact: [phone] Latest Code Status on File Code Status Date Activated Date Inactivated Comments Full Code 09/04/2023 3:31 PM 09/05/2023 8:48 PM This code status was ascertained in the following way: discussion with patient . Code Status History Code Status Date Activated Date Inactivated Comments Full Code 09/04/2023 9:22 AM 09/04/2023 3:31 PM This code status was ascertained in the following way: discussion with patient . Care Teams Environmental Health Inspector Relationship Specialty Start Date End Date Mor Archuleta MD [address] [place] [address] PCP - General Family Medicine 09/23/16
--- OUTSIDE RECORDS SUMMARY | 2024-09-27 12:39 | XMS_ITS | Clinical Summary ---
Author Organization [facility] Address [address] [place] [address] Care Team Providers Care Bacteriologist Dairy Name Role Phone Unavailable Primary Care Provider Unavailabl e Social History Tobacco Use Types Packs/Day Years Used Date Smoking Tobacco: Never Assessed Sex and Gender Information Value Date Recorded Sex Assigned at Not on file Legal Sex Male 6:27 PM EST Gender Identity Not on file Sexual Orientation Not on file Plan of Treatment Health Maintenance Due Date Last Done Comments DTaP/Tdap/Td Vaccines (1 - Tdap) 1960 Pneumococcal Vaccines 50+ (1 of 1 - PCV) 08/20/1991 Zoster (Shingles) Vaccine (1 of 2) 08/20/1991 RSV Vaccine 60 years and old er and Patients (1 - 1-dose 75+ series) 2016 COVID-19 Vaccine (2023-2 5 season) 2023 Hepatitis B Vaccines Aged Out No long er eligible based on patient's age to complete this topic
[2024-09-27 14:24] LABS: Anion Gap 13 (12-20); Blood Urea Nitrogen 15 mg/dL (9-16); Carbon Dioxide 24 mmol/L (22-29); Chloride 105 mmol/L (96-108); Estimated Glomerular Filt Rate > 60; Potassium 4.7 mmol/L (3.3-5.1); Sodium 137 mmol/L (135-145)
== END 2024-09-27 11:20 | disposition home or self-care (01) ==
LOC: HO.WFDLDS 11:19
PROVIDERS: Visit Provider Internal Medicine Nephrology
DX: I10 Essential (primary) hypertension (principal); E87.1 Hypo-osmolality and hyponatremia
CPT/HCPCS: 36415; 80051; 82565; 84520

== ENCOUNTER 2024-09-29 10:46 | Outpatient (AMB) | payer OTHER, SELFPAY ==
--- NOTE | 2024-09-29 10:52 | HO.NEPHOV_ITS ---
Vital Signs 09/29/24 10:53 Height 5 ft 9 in Weight 172 lb BMI 25.4 BP 130/82 Blood Pressure Location Lt brachial Position Sitting Pulse 82 Pulse Source Pulse Oximeter Pulse Oximetry (%) 98 Oxygen Delivery Method Room Air Intake Visit Reasons: Essential (primary) hypertension Flag Maker Required: No Accompanied by: Self / Same As Patient Allergies No Known Allergies Allergy (Verified 09/29/24 10:53) HPI Comments Details: I had the privilege of seeing Remi in follow up for hyponatremia and hypertension. He has history of atrial fibrillation but no history of heart failure. He has no history of liver failure or renal failure. He has no history of depression and is not on any antidepressant medications. He has no nausea, vomiting or diarrhea. He has no pedal edema. He has no history of hyperkalemia or hypotension. He denies compulsive water drinking. He has no history of seizures but had CVA. He has not on any diuretics. He tries to be good with fluid restriction. He drinks 2 beers a day. He has no weakness or mental status changes. His last serum sodium was OK. He had left hip replacement. 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 A-fib Surgical History H/O colonoscopy Social History Alcohol intake: current Patient Tobacco Use Status: Former Tobacco user Review of Systems Const All systems reviewed & are unremarkable except as noted in HPI and below Physical Exam Vital Signs: Last Vital Signs Pulse 82 09/29/24 10:53 BP 130/82 09/29/24 10:53 Pulse Ox 98 09/29/24 10:53 Oxygen Delivery Method Room Air 09/29/24 10:53 BMI result Body Mass Index 25.4 Const General: comfortable and no acute distress Orientation/consciousness: patient oriented x3 HEENT Head: Yes normocephalic Mouth: Normal oral and palatal mucosa present Eyes EOM: EOMs intact bilaterally Neck Neck: Yes supple Resp Auscultation: clear to auscultation bilaterally Cardio Jugular venous distension: no JVD Rate: regular rate GI Palpation (GI): Soft to palpation Auscultation: normal bowel sounds General: Yes no CVA tenderness Back/Spine/Pelvis Back: no CVA tenderness Skin General skin exam: no rashes or lesions noted Neuro General: patient oriented x3 and moves all extremities Extrem General: Yes no pedal edema Results Reviewed Nephrology Results: Sodium, (135-145) 137 mmol/L 09/27/24 Potassium, (3.3-5.1) 4.7 mmol/L 09/27/24 Chloride, (96-108) 105 mmol/L 09/27/24 Carbon Dioxide, (22-29) 24 mmol/L 09/27/24 BUN, (9-16) 15 mg/dL 09/27/24 Creatinine, (0.5-1.4) 0.66 mg/dL 09/27/24 Calcium, (8.4-10.2) 9.9 mg/dL 07/17/23 Assessment & Plan Assessment & Plan (1) Essential (primary) hypertension: Code(s): I10 - Essential (primary) hypertension Category: Medical Plan Remi has H/O hyponatremia for some time which has resolved. He is hypertensive with BP being controlled on current medication. He has no history of heart failure, liver failure or renal failure. He has no edema. He has no history of hyperkalemia or hypotension. He has no nausea, vomiting or diarrhea. He denies compulsive free water drinking but has 2 beers every day. He has history of CVA. 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 He has no weakness or mental status changes. I discussed with him the etiologies of low-sodium, investigations and management. We agreed on monitoring the blood work closely and initiating on medications when it is absolutely necessary. All his questions were answered. Orders: Orders Blood Urea Nitrogen 7 Months I10 - Essential (primary) hypertension Creatinine 7 Months I10 - Essential (primary) hypertension Electrolytes 7 Months I10 - Essential (primary) hypertension Coding Level of Care Code Est Pt Level 4 (90483) Diagnoses Essential (primary) hypertension I10
[2024-09-29 10:53] VITALS: BP 130/82; PULSE 82; O2SAT 98; BMI 25.4
--- OUTSIDE RECORDS SUMMARY | 2024-09-29 12:07 | XMS_ITS | Clinical Summary ---
Author Organization [employer] [facility] it Address [address] [place] [address] Care Team Providers Care Organ Assembler Name Role Phone Mor Archuleta DO Primary Care Provider [phone] Immunizations Name Administration Dates Next Due Pfizer SARS-CoV-2 COVID-19, mRNA, LNP-S, preservative free 11/24/2020,04/12/2020,03/22/2020 Surgical History Surgery Date Site/Laterality Comments BACK SURGERY PROCEDURE:BACK SURGERY COLONOSCOPY PROCEDURE:COLONOSCOPY TOTAL HIP ARTHROPLASTY 01/20/2017 Left PROCEDURE:TOTAL HIP ARTHROPLASTY Medical History Medical History Date Comments Hypertension DX:Hypertension History of transfusion DX:Histor y of transfusion Osteoarthritis DX:Osteoarthriti s Hyperlipidemia DX:Hyperlipidemi a Stroke (CMS/HCC V24, [facility]/HCC V28) 08/2022 DX:Stroke (HCC);[place] Atrial fibrillation ([facility]/HCC V24, [facility] V28) DX:Atrial fibrillation (HCC);COMMENT:Persistent Family History Medical [...] this topic Medical Devices Implanted Type Area Mining Consultant Device Identifier Shelf Expiration Date Model / Serial / Lot Multihole Acetabular Shell 56f 13h [facility] [id number] Implanted:Qty: 1 on 09/04/2023 by Juan Carlos Beltran MD Left: Hip [employer] [id number] 01/03/2028 709-04-56F / / [id number] Lp Hex Screw 6.5x20mm Stry-Howm 1729-3023-0896 57 Implanted:Qty: 1 on 09/04/2023 by Juan Carlos Beltran MD Left: Hip [employer] [id number] 03/24/2028 4389-0740 / / GSDA2 Kit Prep Total Hip Bone Imp [facility]-Or[facility] [id number] Implanted:Qty: 1 on 09/04/2023 by Juan Carlos Beltran MD Left: Hip [employer] [id number] / / [id number] Hip Stem [place] Cemented Sz 1 37.2f115jz Stry-Howm 7311-8-485-780 895 Implanted:Qty: 1 on 09/04/2023 by Juan Carlos Beltran MD Left: Hip [employer] 0580-3-371 / / [id number] Hip Head Delta Biolox 28mm-0 Stry-Howm 3897-2-363-549 188 Implanted:Qty: 1 on 09/04/2023 by Juan Carlos Beltran MD Left: Hip [employer] 6570-0-128 / / [id number] Cement Bone Surg Simplex Radiopq Stry-Howm 9491-5-099-114 092 Implanted:Qty: 2 on 09/04/2023 by Juan Carlos Beltran MD Left: Hip [employer] 6191-1-010 / / Lp Hex Screw 6.5x25mm Stry-Howm 3181-0349-0870 58 Implanted:Qty: 1 on 09/04/2023 by Juan Carlos Beltran MD Left: Hip [employer] [id number] 06/17/2028 3575-9999 / / [id number] Hip Insrt Mod Dl Mobility 46mm Stry-Howm 007-17-99x-551 384 Implanted:Qty: 1 on 09/04/2023 by Juan Carlos Beltran MD Left: Hip [employer] [id number] 08/02/2028 626-00-46F / / [id number] ++Dnu+Disc Use [id number] Hip Insert Adm X3 28 52mm Stry-Howm 8614-0-993-551 467 Implanted:Qty: 1 on 09/04/2023 by Juan Carlos Beltran MD Left: Hip [employer] [id number] 12/26/2027 1236-2-852 / / [id number] Lp Hex Screw 6.5x30mm Stry-Howm 0105-3792-1695 78 Implanted:Qty: 1 on 09/04/2023 by Juan Carlos Beltran MD Left: Hip [employer] [id number] 05/04/2028 9575-1902 / / HHYH Lp Hex Screw 6.5x20mm Stry-Howm 0471-9128-9088 57 Implanted:Qty: 1 on 09/04/2023 by Juan Carlos Beltran MD Left: Hip [employer] [id number] 03/23/2028 0570-2176 / / [id number] Lp Hex Screw 6.5x20mm Stry-Howm 1022-0613-5529 57 Implanted:Qty: 1 on 09/04/2023 by Juan Carlos Beltran MD Left: Hip [employer] [id number] 04/06/2028 4264-8700 / / HDVH Lp Hex Screw 6.5x15mm Stry-Howm 2593-8167-7012 77 Implanted:Qty: 1 on 09/04/2023 by Juan Carlos Beltran MD Left: Hip [employer] [id number] 03/04/2028 4818-3142 / / [id number] Lp Hex Screw 6.5x15mm Stry-Howm 3735-7196-0371 77 Implanted:Qty: 1 on 09/04/2023 by Juan Carlos Beltran MD Left: Hip [employer] [id number] 03/09/2028 2283-9358 / / [id number] Care Teams Organ Assembler Relationship Specialty Start Date End Date Mor Archuleta DO [address] [place], [place] PCP - General Family Medicine 09/23/16
--- OUTSIDE RECORDS SUMMARY | 2024-09-29 12:07 | XMS_ITS | Clinical Summary ---
Author Organization [facility] Address [address] [place] [address] Care Team Providers Care Drupal Architect Name Role Phone Unavailable Primary Care Provider [...]
--- OUTSIDE RECORDS SUMMARY | 2024-09-29 12:07 | XMS_ITS | Clinical Summary ---
Author Organization [facility] Address [address] [place] [address] Care Team Providers Care Circle Saw Operator Name Role Phone Mor Archuleta MD Primary Care Provider [phone] Allergies No known active allergies Medications Medication [...] this topic Medical Devices Implanted Type Area Pattern Hanger Device Identifier Shelf Expiration Date Model / Serial / Lot Multihole Acetabular Shell 56f 13h Stry-Howm [id number] 890 - [id number] Implanted:Qty: 1 on 09/04/2023 by Juan Carlos Beltran MD at [facility] [place] [place] [facility] Left: Hip [employer] [id number] 01/03/2028 709-04-56F / / [id number] Lp Hex Screw 6.5x20mm Stry-Howm 5745-2475-6882 57 - [id number] Implanted:Qty: 1 on 09/04/2023 by Juan Carlos Beltran MD at [facility] [place] [place] [facility] Left: Hip [employer] [id number] 03/24/2028 6691-1003 / / GSDA2 Kit Prep Total Hip Bone Imp [facility] 508668-553722 - [id number] Implanted:Qty: 1 on 09/04/2023 by Juan Carlos Beltran MD at [facility] [place] [place] [facility] Left: Hip [employer] [id number] / / [id number] Hip Stem [place] Cemented Sz 1 37.7n494zf Stry-Howm 1520-0-967-780 895 - [id number] Implanted:Qty: 1 on 09/04/2023 by Juan Carlos Beltran MD at [facility] [place] [place] [facility] Left: Hip [employer] 0580-3-371 / / [id number] Hip Head Delta Biolox 28mm-0 Stry-Howm 2355-4-366-549 188 - [id number] Implanted:Qty: 1 on 09/04/2023 by Juan Carlos Beltran MD at [facility] [place] [place] [facility] Left: Hip [employer] 6570-0-128 / / [id number] Cement Bone Surg Simplex Radiopq Stry-Howm 9964-8-912-114 092 - [id number] Implanted:Qty: 2 on 09/04/2023 by Juan Carlos Beltran MD at [facility] [place] [place] [facility] Left: Hip [employer] 6191-1-010 / / Lp Hex Screw 6.5x25mm Stry-Howm 9752-0287-6767 58 - [id number] Implanted:Qty: 1 on 09/04/2023 by Juan Carlos Beltran MD at [facility] [place] [place] [facility] Left: Hip [employer] [id number] 06/17/2028 0495-2522 / / HXTA1 Hip Insrt Mod Dl Mobility 46mm Stry-Howm 820-07-42k-551 384 - [id number] Implanted:Qty: 1 on 09/04/2023 by Juan Carlos Beltran MD at [facility] [place] [place] [facility] Left: Hip [employer] [id number] 08/02/2028 626-00-46F / / [id number] ++Dnu+Disc Use [id number] Hip Insert Adm X3 28 52mm Stry-Howm 7731-5-702-551 467 - [id number] Implanted:Qty: 1 on 09/04/2023 by Juan Carlos Beltran MD at [facility] [place] [place] [facility] Left: Hip [employer] [id number] 12/26/2027 1236-2-852 / / [id number] Lp Hex Screw 6.5x30mm Stry-Howm 9814-1737-6855 78 - [id number] Implanted:Qty: 1 on 09/04/2023 by Juan Carlos Beltran MD at [facility] [place] [place] [facility] Left: Hip [employer] [id number] 05/04/2028 6223-3574 / / HHYH Lp Hex Screw 6.5x20mm Stry-Howm 7531-9180-9340 57 - [id number] Implanted:Qty: 1 on 09/04/2023 by Juan Carlos Beltran MD at [facility] [place] [place] [facility] Left: Hip [employer] [id number] 03/23/2028 8542-3475 / / [id number] Lp Hex Screw 6.5x20mm Stry-Howm 8027-0194-5760 57 - [id number] Implanted:Qty: 1 on 09/04/2023 by Juan Carlos Beltran MD at [facility] [place] [place] [facility] Left: Hip [employer] [id number] 04/06/2028 6513-5562 / / HDVH Lp Hex Screw 6.5x15mm Stry-Howm 4456-2260-5221 77 - [id number] Implanted:Qty: 1 on 09/04/2023 by Juan Carlos Beltran MD at [facility] [place] [place] [facility] Left: Hip [employer] [id number] 03/04/2028 0404-6836 / / H8AA Lp Hex Screw 6.5x15mm Stry-Howm 3600-4264-7186 77 - [id number] Implanted:Qty: 1 on 09/04/2023 by Juan Carlos Beltran MD at [facility] [place] [place] [facility] Left: Hip [employer] [id number] 03/09/2028 0397-2065 / / [id number] Advance Directives For more information, please contact: [phone] Latest Code Status on File Code Status [...] way: discussion with patient . Care Teams Circle Saw Operator Relationship Specialty Start Date End Date Mor Archuleta MD [address] [place] [address] PCP - General Family Medicine 09/23/16
== END 2024-09-29 11:10 | disposition home or self-care (01) ==
LOC: HO.HKA 10:47
PROVIDERS: PCP Family Medicine; Visit Provider Internal Medicine Nephrology
DX: I10 Essential (primary) hypertension (principal)
CPT/HCPCS: 99214